=== PATIENT | male | born 1945 | race Caucasian/White ===

== ENCOUNTER 2016-08-03 13:00 | Inpatient (IN) | payer BC, OTHER ==
[~2016-08-03] VITALS: Ht 170.2 cm; Wt 97.8 kg
[~2016-08-03 13:00] MED LIST: AMIL5TAB15 PO; ATOR-24 PO; CMP/10 PO; ENOX40IN SQ; FLUD0.1T10 PO; LEVO100T7 PO; ONDA-63 PO; PANT40TA PO; XLD/500 PO; ZOLP5TAB6 PO
[2016-08-03] MEDS ORDERED: SODIUM CHLORIDE 0.9% 1000ML 2,000 ML IV STA (13:38)
[2016-08-03] MEDS ORDERED: PIPERACILLIN/TAZOBACTAM 4.5 GM/100ML D5W IV STA (13:39)
[2016-08-03] MEDS ORDERED: VANCOMYCIN INJ 1,900 MG in SODIUM CHLORIDE 0.9% 250ML 250 ML IV STA (14:06)
[2016-08-03] MEDS ORDERED: VANCOMYCIN INJ 1,900 MG in SODIUM CHLORIDE 0.9% 500ML 500 ML IV SCH (14:06)
[2016-08-03] MEDS ORDERED: SODIUM CHLORIDE 0.9% 1000ML 1,000 ML IV STA (14:06)
[2016-08-03 14:13] LABS: INR 1.4 (0.9-1.1); PROTHROMBIN TIME (PATIENT) 15.1 SECONDS (9.0-12.0)
[2016-08-03 14:24] LABS: BUN/CREATININE RATIO 12.2 (10-20); CALCIUM 7.8 mg/dl (8.5-10.1); CREATININE 3.4 mg/dl (0.60-1.40); MAGNESIUM 1.2 mg/dl (1.8-2.4); POTASSIUM 4.8 mmol/L (3.5-5.1)
--- NOTE | 2016-08-03 14:24 | DIAGNOSTIC IMAGING REPORT ---
CHEST ONE VIEW PORTABLE CLINICAL HISTORY: fever cough COMPARISON STUDY: 03/12/2016 FINDINGS: Poor visibility of the left cardiac margin. Lingular infiltrate is potentially present. Minimal infiltrative change left suprahilar region. Central catheter in superior vena cava. IMPRESSION: Interval development of infiltrative changes involving the lingula and left upper lung Electronically signed by: Keith Queen M.D. 08/03/2016 2:21 PM Dictated Date/Time: 08/03/2016 2:21 PM
[2016-08-03 14:28] LABS: ISTAT CREATININE 3.3 mg/dl (0.6-1.3); ISTAT HEMOGLOBIN 12.9 g/dl (14.0-18.0); ISTAT IONIZED CALCIUM 1.03 mmol/l (1.12-1.32)
[2016-08-03 14:49] LABS: CKMB/CK RATIO 2.2 (0-3.0)
--- NOTE | 2016-08-03 14:57 | DIAGNOSTIC IMAGING REPORT ---
ABDOMEN AND PELVIS CT WITHOUT CONTRAST CT DOSE: 1467.51 mGy.cm HISTORY: Left lower quadrant abdominal pain. TECHNIQUE: Multiaxial CT images of the abdomen and pelvis were performed without contrast. COMPARISON STUDY: Abdomen and pelvis CT 03/12/2016. FINDINGS: The lung bases are clear. There is a tip of the catheter within the distal SVC. Poststernotomy changes. No pneumoperitoneum. No pneumatosis. Stable small sclerotic focus within the right side of the sacrum favors a bone island. The gallbladder is not identified and is likely surgically absent. No hepatic or splenic masses. Normal adrenal glands, pancreas, and kidneys. No hydronephrosis. Small fat-containing hiatus hernia. Motion artifact. No retroperitoneal lymphadenopathy. The bladder is unremarkable. The prostate is surgically absent. Fluid-filled colon. Mild thickening of the of the distal descending colon with mild pericolic fat stranding. This is consistent with a nonspecific colitis. The colon is decompressed resulting in suboptimal evaluation. No evidence for bowel obstruction. Small focal area of right-sided mesenteric fat stranding is of uncertain clinical significance. IMPRESSION: 1. Mild thickening of the distal descending colon consistent with a nonspecific colitis. 2. Small focal area of mild fat stranding within the right side of the mesentery adjacent to the distal superior mesenteric vessels. This is of uncertain clinical significance. One month follow-up can be performed to ensure resolution. Electronically signed by: Michael Diaz M.D. 08/03/2016 2:55 PM Dictated Date/Time: 08/03/2016 2:48 PM
[2016-08-03 15:43] LABS: HEMATOCRIT 38.5 % (42-52); MEAN CELL VOLUME 78.9 fL (80-100); MEAN CORPUSCULAR HEMOGLOBIN 26.2 pg (25-34); MEAN CORPUSCULAR HGB CONC 33.2 g/dl (32-36); PLATELET COUNT 38 K/uL (130-400); RED BLOOD COUNT 4.88 M/uL (4.7-6.1)
[2016-08-03 15:45] LABS: COMPLETE YES; GIANT PLATELETS 3+; LYMPH ABS # 0.11 K/uL (1.2-3.4)
[2016-08-03] MEDS ORDERED: ONDANSETRON INJ 8 MG in DEXTROSE 5% 50ML 50 ML IV PRN (15:45)
[2016-08-03] MEDS ORDERED: ONDANSETRON INJ 2 MG/ML 2 ML VIAL IV PRN (15:45)
[2016-08-03] MEDS ORDERED: POLYETHYLENE (MIRALAX) 17 GM PACK PO PRN (15:45)
[2016-08-03] MEDS ORDERED: MAGNESIUM HYDROXIDE SUSP 30 ML UDC PO PRN (15:45)
[2016-08-03] MEDS ORDERED: ACETAMINOPHEN 325 MG TAB PO PRN (15:45)
[2016-08-03] MEDS ORDERED: ALUMINUM/MAGNESIUM/SIMETH (MAALOX MAX) 30 ML UDC PO PRN (15:45)
[2016-08-03] MEDS ORDERED: ZOLPIDEM TARTRATE 5 MG TAB PO PRN (15:45)
[2016-08-03 15:47] LABS: WHITE BLOOD COUNT 0.11 K/uL (4.8-10.8)
--- NOTE | 2016-08-03 16:16 | History and Physical ---
History & Physical Date & Time of Service: Aug 03, 2016 at 14:27 Chief Complaint: Cannot Stand,Nausea,Vision Problems, Chemo Side Ef Primary Care Physician: Jovani Olvera M.D. History of Present Illness Source: patient, spouse Mr. Cody is a 70 y/o male with PMHx of Metastatic Esophageal CA with Mets to Lung, Prostate CA S/P Prostatectomy, CAD S/P CABG x 3, HTN, CKD Stage II, and Cerebral Venous Thrombosis on Lovenox who presents to the ED complaining of persistent weakness that started suddenly yesterday morning. He has been experiencing persistent chills and rigors that have progressively worsened. Per patient's , symptoms did not resolve with the use of blankets and 3 heating pads. She states that when she took his temperature it was normal at approximately 99F. Later in the evening, patient noted to be confused and was seen crawling to the bathroom. Patient states that this is the last time he urinated but cannot give further details. Per , patient noted to have looser stool without evidence of melena/hematochezia . He is currently undergoing chemotherapy with last dose on Saturday. This is the second round and he is due for another dosing on Saturday. They deny known sick contacts. Patient denies any other symptoms including headache, visual changes, chest pain , shortness of breath, cough, nausea/vomiting, dysuria. Patient reports that he was largely feeling well prior to yesterday but does reports mild generalized fatigue that he contributes to chemotherapy. In the ED, temperature 36.3 moments of hypotension that have stabilized with aggressive hydration. Has received NSS 3 L. He is tachycardic and tachypneic. EKG reveals sinus tachycardia with T-wave inversion in V1 and V3 ST T-wave abnormalities in V2. These appear new compared to prior EKGs. Patient placed on neutropenic precautions as neutrophils are 0 and WBC is 0.11. Creatinine 3.4 with baseline appearing to be 1.4-1.6. Magnesium of 1.2. Lactic acid 7.4. Initial troponin 0.315. CXR showing infiltrative change in the lingula and left upper lobe. He will be admitted to telemetry for sepsis likely a pulmonary source. Past Medical/Surgical History Medical Problems: (1) Asthma, Unspecified Status: Chronic (2) Brain aneurysm Status: Chronic (3) Chronic Kidney Disease, Unspecified Status: Chronic (4) CORONARY ATHEROSCLEROSIS OF [place] CORONARY VESSEL Status: Chronic (5) Dysphagia Status: Resolved (6) Esophageal adenocarcinoma Status: Chronic (7) Gastritis Status: Resolved (8) HX OF IRRADIATION Status: Resolved (9) HX-ORAL/PHARYNX MALG NEC Status: Resolved (10) Hyperlipidemia Nec/Nos Status: Chronic (11) Hypertension Nos Status: Chronic (12) Odynophagia Status: Resolved (13) Orthostatic hypotension Status: Resolved Surgical Problems: (1) Coronary artery bypass grafts x 3 Status: Resolved (2) History of prostatectomy Status: Resolved (3) S/P cholecystectomy Status: Resolved Family History Diabetes mellitus FHx: cancer Hypertension Social History Smoking Status: Never Smoker Drug Use: none Marital Status: Occupational Status: retired Immunizations History of Influenza Vaccine: No History of Tetanus Vaccine?: Unknown Tetanus Immunization Date: May 15, 2007 History of Pneumococcal: Unknown History of Hepatitis B Vaccine: Unknown Multi-Drug Resistant Organisms History of MDRO: No Allergies Coded Allergies: Doxycycline (Verified Adverse Reaction, Intermediate, GI SYMPTOMS, ) Home Medications Scheduled Amiloride Hcl (Amiloride Hcl), 5 MG PO DAILY Atorvastatin (Lipitor), 40 MG PO DAILY Capecitabine (Xeloda), 1,000 MG PO BID Enoxaparin (Lovenox), 40 MG SQ QPM Fludrocortisone Acetate (Florinef), 0.1 MG PO DAILY Levothyroxine Sodium (Levothyroxine Sodium), 100 MCG PO DAILY Pantoprazole (Protonix), 40 MG PO DAILY Prochlorperazine Maleate (Prochlorperazine Maleate), 10 MG PO PRN UD Scheduled PRN Ondansetron (Ondansetron HCl), 8 MG PO Q8 PRN for Nausea Zolpidem Tartrate (Zolpidem Tartrate), 5 MG PO HS PRN for Insomnia Review of Systems REVIEW OF SYSTEMS: General/Constitutional: +chills, +rigors, +generalized weakness; Denies fever ENT: Denies visual changes, nasal drainage, hearing loss, sore throat, trouble swallowing Cardiovascular: Denies chest pain, palpitations, edema Respiratory: Denies cough, sputum, SOB, wheezing, orthopnea GI: +mild LLQ abdominal pain, +loose stool ; Denies nausea, vomiting, constipation, melena/hematochezia : +decreased urination; Denies dysuria, frequency, hematuria Musculoskeletal: Denies joint/muscle aches, weakness, swelling Neurologic: Denies dizziness/lightheadedness, numbness/tingling Psychiatric: Deferred Endocrine: Deferred Hematologic/Lymphatic: Denies bleeding/clotting abnormalities Skin: Denies rash, itch, new skin changes, easy bruising Allergy/Immunologic: Deferred Physical Exam Vital Signs Date Time Temp Pulse Resp B/P Pulse Ox O2 Delivery O2 Flow Rate FiO2 08/03/16 13:53 119 08/03/16 13:10 36.3 124 26 117/61 94 Room Air PHYSICAL EXAM:: General Appearance: Ill-appearing with rigors who is A&O x 3 HEENT: Head is normocephalic/atraumatic; EOMI; PERRLA; Hearing grossly intact; Mucous membranes dry; Pharynx negative for exudate/lesions Neck: Supple; Trachea midline; Neg JVD; Neg lymphadenopathy Heart: Tachycardic with regular rhythm with no M/G/R Lungs: CTA in all lung [place] bilaterally but diminished; Respirations mildly labored (tachypneic); Neg accessory muscle use Abdomen: Soft, non-tender, non-distended; Positive BS x 4 quadrants; Neg organomegaly Extremities: Capillary refill < 2 seconds; Neg cyanosis or edema Neurological: Speech clear; Gross motor/sensory function intact; Neg focal neurologic deficits Psychiatric: Appropriate mood/affect Skin: Normal Color; Warm/Dry; Neg rashes, ecchymosis, lacerations/ulcerations Diagnostics Laboratory Results Results Past 24 Hours Test 08/03/16 13:38 08/03/16 13:50 08/03/16 13:58 08/03/16 14:11 Range/Units Creatine Kinase MB Ratio 0-3.0 Prothrombin Time 15.1 9.0-12.0 SECONDS Prothromb Time International Ratio 1.4 0.9-1.1 Sodium Level 137 136-145 mmol/L Potassium Level 4.8 3.5-5.1 mmol/L Chloride Level 104 98-107 mmol/L Carbon Dioxide Level 17 21-32 mmol/L Anion Gap 16.0 3-11 mmol/L Blood Urea Nitrogen 42 7-18 mg/dl Creatinine 3.40 0.60-1.40 mg/dl Est Creatinine Clear Calc Drug Dose 22.0 ml/min Estimated GFR () 19.8 Estimated GFR (Non- 17.0 BUN/Creatinine Ratio 12.2 10-20 Random Glucose 98 70-99 mg/dl Calcium Level 7.8 8.5-10.1 mg/dl Magnesium Level 1.2 1.8-2.4 mg/dl Direct Bilirubin 0.9 0-0.2 mg/dl Alanine Aminotransferase (ALT/SGPT) 43 12-78 U/L Albumin 2.6 3.4-5.0 gm/dl Bedside Lactic Acid Venous 7.40 0.90-1.70 mmol/L Microbiology Results 08/03/16 Blood Culture, Received Pending 08/03/16 Blood Culture, Received Pending Diagnostic Radiology 1. CHEST ONE VIEW PORTABLE CLINICAL HISTORY: fever cough COMPARISON STUDY: 03/12/2016 FINDINGS: Poor visibility of the left cardiac margin. Lingular infiltrate is potentially present. Minimal infiltrative change left suprahilar region. Central catheter in superior vena cava. IMPRESSION: Interval development of infiltrative changes involving the lingula and left upper lung EKG Poor data quality, interpretation may be adversely affected Sinus tachycardia ST and t wave changes concerning for ischemia Abnormal ECG When compared with ECG of 12-MAR-2016 15:16, T wave inversion now evident in Anterior leads Confirmed by Jakob Sam ([id number]) on 08/03/2016 4:35:17 PM Impression Assessment and Plan Mr. Cody is a 70 y/o male with PMHx of Metastatic Esophageal CA with Mets to Lung, Prostate CA S/P Prostatectomy, CAD S/P CABG x 3, HTN, CKD Stage II, and Cerebral Venous Thrombosis on Lovenox who presents to the ED complaining of persistent weakness that started suddenly yesterday morning. He will be admitted to telemetry for sepsis likely a pulmonary source. Sepsis 2/2 Pneumonia with Non-specific Colitis and Neutropenic Fever: NEUTROPENIC PRECAUTIONS - Awaiting further R/O with UA, C. Diff, and BCx - Chest CT - further evaluation of lung [place] for pneumonia vs CA - NSS 3 L - continue NSS 100 mL/hr - Continue aggressive hydration if needed - Zosyn and vancomycin per pharmacy dosing Elevated Troponin: Demand Ischemia vs SALINA vs NSTEMI - Serial cardiac enzymes - Consult cardiology - appreciate recommendations SAL[place] on CKD Stage II: Baseline 1.5-1.6 - Continue hydration as above - trend BMP Hypomagnesemia: Chronic Issue: - Magnesium 1 g IV 3 - Continue to monitor and replete as necessary Metastatic Esophageal CA with Lung Mets under Chemotherapy with Pancytopenia: - Zofran 4-8 mg IV PRN - Consult Heme/Onc - Dr. Cruz -- Neupogen 300 mcg daily Hypothyroidism: - Synthroid 100 mcg daily Cerebral Venous Thrombosis: 3 Years Ago - Patient has been continued on prophylactic Lovenox while undergoing cancer treatment - Due to significant thrombocytopenia - will hold Lovenox until further evaluation DVT Prophylaxis: Thrombocytopenia; YEE/SCDs Code Status: FULL RESUSICTATION Disposition: Resides at home Level of Care Telemetry Resuscitation Status FULL RESUSCITATION VTE Prophylaxis VTE Risk Assessment Done? Y/N: Yes Risk Level: Moderate Given or contraindicated: T.ELiz Stockings, SCD's Social Service Consult Cancer Patient Under [place] Assessment and Plan Attending Addendum: I have physically seen and examined this patient, have directed their medical care, have supervised the PA's activity, and agree with the H&P as noted above, with the following changes: NONE.
[2016-08-03 17:58] VITALS: BP 138/73; PULSE 133; TEMP 36.5; O2SAT 96; Ht 170.2 cm; Wt 97.8 kg
[2016-08-03 17:59] LABS: INFLUENZA A PCR Neg for Influ A (NEG); INFLUENZA B PCR Neg for Influ B (NEG)
--- NOTE | 2016-08-03 18:10 | EMERGENCY ROOM VISIT NOTE ---
History Report prepared by Nubia: Emmanuelle Francis Under the Supervision of: Dr. Donald Tran D.O. First contact with patient: 13:20 Chief Complaint: OTHER COMPLAINT Stated Complaint: CANNOT STAND,NAUSEA,VISION PROBLEMS, CHEMO SIDE EF History of Present Illness The patient is a 70 year old male who presents to the Emergency Room with complaints of persistent weakness starting yesterday morning. He started having chills and shaking yesterday morning. He was not able to warm up with heating pads. Later on in the evening he was confused and weak. He reports some diarrhea. Pt denies headache, change in vision, fevers, chest pain, shortness of breath, nausea, vomiting, pain with urination, and melena. He is receiving chemo for esophageal cancer which has spread to his lungs and lymph nodes. He has had 2 rounds of chemo so far. His last round was 4 days ago. He is on Lovenox. notes that he was confused yesterday that this has resolved today. Source of History: patient, spouse/significant other Onset: yesterday morning Position: other (global) Quality: other (weakness) Timing: other (persistent) Associated Symptoms: + chills, + diarrhea, No SOB, No chest pain, No fevers , No headache, No melena, No nausea, No vomiting Note: Pt reports confusion. Pt denies change in vision, dysuria. Review of Systems See HPI for pertinent positives & negatives. A total of 10 systems reviewed and were otherwise negative. 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 (11) Hyperlipidemia Nec/Nos (12) Hypertension Nos (13) Odynophagia (14) Orthostatic hypotension (15) Pancytopenia (16) Sepsis (17) Syncope Surgical Problems: (1) Coronary artery bypass grafts x 3 (2) History of prostatectomy (3) S/P cholecystectomy Family History Diabetes mellitus FHx: cancer Social History Smoking Status: Never Smoker Alcohol Use: occasionally Drug Use: none Marital Status: Housing Status: lives with family Occupation Status: retired Current/Historical Medications Scheduled Amiloride Hcl (Amiloride Hcl), 5 MG PO DAILY Atorvastatin (Lipitor), 40 MG PO DAILY Capecitabine (Xeloda), 1,000 MG PO BID Enoxaparin (Lovenox), 40 MG SQ QPM Fludrocortisone Acetate (Florinef), 0.1 MG PO DAILY Levothyroxine Sodium (Levothyroxine Sodium), 100 MCG PO DAILY Pantoprazole (Protonix), 40 MG PO DAILY Prochlorperazine Maleate (Prochlorperazine Maleate), 10 MG PO PRN UD Scheduled PRN Ondansetron (Ondansetron HCl), 8 MG PO Q8 PRN for Nausea Zolpidem Tartrate (Zolpidem Tartrate), 5 MG PO HS PRN for Insomnia Allergies Coded Allergies: Doxycycline (Verified Adverse Reaction, Intermediate, GI SYMPTOMS, ) Physical Exam Vital Signs Date Time Temp Pulse Resp B/P Pulse Ox O2 Delivery O2 Flow Rate FiO2 08/03/16 15:25 113 28 92 08/03/16 15:11 132/78 08/03/16 15:00 125/72 08/03/16 14:55 112 34 100 08/03/16 14:54 113 20 142/77 98 Room Air 08/03/16 14:51 142/77 08/03/16 14:30 114/66 08/03/16 14:25 109 29 94 08/03/16 14:20 110 22 97 Room Air 08/03/16 14:19 99/63 08/03/16 14:15 113 27 96 Room Air 08/03/16 14:10 116 38 97 Room Air 08/03/16 14:05 116 38 96 Room Air 08/03/16 14:00 116 37 99/66 08/03/16 13:55 118 36 90 Room Air 08/03/16 13:53 119 08/03/16 13:50 119 29 92 Room Air 08/03/16 13:45 120 26 94 Room Air 08/03/16 13:40 117 32 92 Room Air 08/03/16 13:30 85/54 08/03/16 13:10 36.3 124 26 117/61 94 Room Air Physical Exam GENERAL: sitting up in bed, ill appearing, in significant distress, lethargic EYE EXAM: normal conjunctiva, PERRL and EOM's intact OROPHARYNX: no exudate, no erythema, lips, buccal mucosa, and tongue normal and mucous membranes are dry NECK: supple, no nuchal rigidity, no adenopathy, non-tender CHEST: port on anterior chest wall LUNGS: Clear to auscultation. Normal chest wall mechanics HEART: tachycardic rate. no murmurs, S1 normal and S2 normal ABDOMEN: abdomen soft, mild tenderness to palpation to the LLQ, normo-active bowel sounds, no masses, no rebound or guarding. BACK: Back is symmetrical on inspection and there is no deformity, no midline tenderness, no CVA tenderness. SKIN: no rashes and no bruising UPPER EXTREMITIES: upper extremities are grossly normal. LOWER EXTREMITIES: No pitting edema. NEURO EXAM: Normal sensorium, oriented to person place, time and date. Cranial nerves II-XII intact, normal speech, no weakness of arms, no weakness of legs. No drift. Finger to nose intact. Gross sensation intact. Medical Decision & Procedures ER Provider Diagnostic Interpretation: Xray results as stated below per radiologists and my interpretation. Radiology results as stated below per my review and the radiologist's interpretation: CHEST ONE VIEW PORTABLE CLINICAL HISTORY: fever cough COMPARISON STUDY: 03/12/2016 FINDINGS: Poor visibility of the left cardiac margin. Lingular infiltrate is potentially present. Minimal infiltrative change left suprahilar region. Central catheter in superior vena cava. IMPRESSION: Interval development of infiltrative changes involving the lingula and left upper lung Electronically signed by: Keith Queen M.D. 08/03/2016 2:21 PM Dictated Date/Time: 08/03/2016 2:21 PM ABDOMEN AND PELVIS CT WITHOUT CONTRAST CT DOSE: 1467.51 mGy.cm HISTORY: Left lower quadrant abdominal pain. TECHNIQUE: Multiaxial CT images of the abdomen and pelvis were performed without contrast. COMPARISON STUDY: Abdomen and pelvis CT 03/12/2016. FINDINGS: The lung bases are clear. There is a tip of the catheter within the distal SVC. Poststernotomy changes. No pneumoperitoneum. No pneumatosis. Stable small sclerotic focus within the right side of the sacrum favors a bone island. The gallbladder is not identified and is likely surgically absent. No hepatic or splenic masses. Normal adrenal glands, pancreas, and kidneys. No hydronephrosis. Small fat-containing hiatus hernia. Motion artifact. No retroperitoneal lymphadenopathy. The bladder is unremarkable. The prostate is surgically absent. Fluid-filled colon. Mild thickening of the of the distal descending colon with mild pericolic fat stranding. This is consistent with a nonspecific colitis. The colon is decompressed resulting in suboptimal evaluation. No evidence for bowel obstruction. Small focal area of right-sided mesenteric fat stranding is of uncertain clinical significance. IMPRESSION: 1. Mild thickening of the distal descending colon consistent with a nonspecific colitis. 2. Small focal area of mild fat stranding within the right side of the mesentery adjacent to the distal superior mesenteric vessels. This is of uncertain clinical significance. One month follow-up can be performed to ensure resolution. Electronically signed by: Michael Diaz M.D. 08/03/2016 2:55 PM Dictated Date/Time: 08/03/2016 2:48 PM Laboratory Results 08/03/16 13:50 Red Blood Count 4.88, Mean Corpuscular Volume 78.9, Mean Corpuscular Hemoglobin 26.2, Mean Corpuscular Hemoglobin Concent 33.2 08/03/16 13:50 Test 08/03/16 13:50 08/03/16 13:58 08/03/16 14:11 White Blood Count 0.11 K/uL (4.8-10.8) Red Blood Count 4.88 M/uL (4.7-6.1) Hemoglobin 12.8 g/dL (14.0-18.0) Hematocrit 38.5 % (42-52) Mean Corpuscular Volume 78.9 fL (80-100) Mean Corpuscular Hemoglobin 26.2 pg (25-34) Mean Corpuscular Hemoglobin Concent 33.2 g/dl (32-36) Platelet Count 38 K/uL (130-400) RDW Standard Deviation 43.6 fL (36.4-46.3) RDW Coefficient of Variation 15.1 % (11.5-14.5) Neutrophils % (Manual) 0.0 % Lymphocytes % (Manual) 98.0 % Eosinophils % (Manual) 2.0 % Neutrophils # (Manual) 0.00 K/uL (1.4-6.5) Total Absolute Neutrophils 0.00 K/uL (1.4-6.5) Lymphocytes # (Manual) 0.11 K/uL (1.2-3.4) Total Absolute Lymphocytes 0.11 K/uL (1.2-3.4) Eosinophils # (Manual) 0.00 K/uL (0-0.5) Giant Platelets 3+ Peripheral Blood Smear Path Consult Prothrombin Time 15.1 SECONDS (9.0-12.0) Prothromb Time International Ratio 1.4 (0.9-1.1) Est Creatinine Clear Calc Drug Dose 22.0 ml/min Estimated GFR () 19.8 Estimated GFR (Non- 17.0 BUN/Creatinine Ratio 12.2 (10-20) Calcium Level 7.8 mg/dl (8.5-10.1) Magnesium Level 1.2 mg/dl (1.8-2.4) Total Bilirubin 2.4 mg/dl (0.2-1) Direct Bilirubin 0.9 mg/dl (0-0.2) Aspartate Amino Transf (AST/SGOT) 40 U/L (15-37) Alanine Aminotransferase (ALT/SGPT) 43 U/L (12-78) Alkaline Phosphatase 97 U/L (45-117) Total Creatine Kinase 59 U/L (39-308) Creatine Kinase MB 1.3 ng/ml (0.5-3.6) Creatine Kinase MB Ratio 2.2 (0-3.0) Troponin I 0.315 ng/ml (0-0.045) Total Protein 5.5 gm/dl (6.4-8.2) Albumin 2.6 gm/dl (3.4-5.0) Bedside Lactic Acid Venous 7.40 mmol/L (0.90-1.70) Bedside Hemoglobin 12.9 g/dl (14.0-18.0) Bedside Hematocrit 38 % (42-52) Bedside Sodium 135 mEq/L (135-144) Bedside Potassium 4.9 mEq/L (3.3-5.0) Bedside Chloride 102 mEq/L (101-112) Bedside Total CO2 16 mEq/l (24-31) Anion Gap 23.0 mmol/L (16-25) Bedside Blood Urea Nitrogen 38 mg/dl (7-18) Bedside Creatinine 3.3 mg/dl (0.6-1.3) Bedside Glucose (other) 94 mg/dl (70-99) Bedside Ionized Calcium (Nati) 1.03 mmol/l (1.12-1.32) Laboratory results per my review. Medications Administered Medications (Trade) Dose Ordered Sig/Mckinley Route Start Time Stop Time Status Last Admin Dose Admin Sodium Chloride (Nss 1000ml) 2,000 ml @ 999 mls/hr Q2H1M STAT IV 08/03/16 13:38 08/03/16 15:38 DC 08/03/16 14:28 999 MLS/HR Piperacillin Sod/ Tazobactam Sod 4.5 gm 4.5 gm NOW STAT IV 08/03/16 13:39 08/03/16 13:40 DC 08/03/16 14:28 4.5 GM Sodium Chloride 1,000 ml @ 999 mls/hr Q1H1M STAT IV 08/03/16 14:06 08/03/16 15:06 DC 08/03/16 14:06 999 MLS/HR Vancomycin HCl/ Sodium Chloride (Vancomycin Inj/ Nss 500ml) 538 ml @ 200 mls/hr TODAY@1406 IV 08/03/16 14:06 08/03/16 18:00 DC 08/03/16 14:31 200 MLS/HR ECG Indication: weakness Rate (beats per minute): 117 Rhythm: sinus tachycardia Findings: ST depression (Anterior), other (normal axis) ED Course ED COURSE: Vital signs were reviewed and showed hypothermia, tachycardia, and hypotension. The patients medical record was reviewed The above diagnostic studies were performed and reviewed. ED treatments and interventions as stated above. 1323: The patient was evaluated in room A2. A complete history and physical examination was performed. 1338: NSS 2000 ml @ 999 mls/hr IV. 1339: Zosyn Iv 4.5 gm IV. 1340: I reevaluated the patient. His blood pressure is in the 80s and his lactate is 7. Another line will be obtained. 1406: Vancomycin HCl 1900 mg/Sodium Chloride 538 ml @ 200 mls/hr IV, NSS 1000 ml @ 999 mls/hr IV. 1413: I reevaluated the patient. His blood pressure is 99 now. 1444: I reevaluated the patient. His blood pressure is now in the 110s. 1521: Upon reevaluation, the patient is resting comfortably. I discussed my findings with the patient and his and they understand and agree with the treatment plan. Based on the patients age, coexisting illnesses, exam and lab findings the decision to treat as an inpatient was made. The patient remained stable while under my care. The patient will be evaluated for further management. 1528: I discussed the patient's case with NATALI Cordova - hospitalist. He will evaluate the patient for further management. Medical Decision Differential diagnosis includes etiologies such as sepsis, UTI, pneumonia, metabolic, electrolyte abnormalities, cardiac sources, intracerebral event, toxicologic, neurologic, as well as others were entertained. Patient is a 70-year-old male who presents the ER for confusion and diffuse weakness. He is currently receiving chemotherapy for metastatic esophageal cancer. Upon presentation he is found to be hypotensive with systolic blood pressures in the 70s to 80s. On my exam he is completely neurologically intact. He has no complaints with exception of mild left lower quadrant abdominal pain. Labs show a neutropenia with an absolute neutrophil count of 0. Creatinine is significantly elevated off of his baseline at 3.4. Lactate is markedly elevated at 7.4. With his elevated creatinine a noncontrast study of his abdomen was performed. This shows no acute pathology that would explain his symptoms. Chest x-ray does support a pneumonia. Troponin was elevated at 0.3 which I favors likely demand in nature. Bilirubin was elevated as well. Upon arrival 2 IVs were immediately established and a sepsis alert was called. His port was accessed as well. Blood pressures improved from the 80s to low 100s gradually. He was given 3 L normal saline along with Zosyn and vancomycin. He was admitted to internal medicine with severe sepsis and a lactate acidosis of 7 along with neutropenia. Consults Time Called: 1520 Consulting Physician: CYNDY Cordova - hospitalist Returned Call: 1520 I reviewed the patient's case with him. He will evaluate the patient for further management. Impression Primary Impression: Sepsis Additional Impressions: Neutropenia Lactic acidosis Acute kidney injury Pneumonia Critical Care I have personally spent 35 minutes of critical care time in the direct management of this patient. This includes bedside care, interpretation of diagnostic studies, and testing, discussion with consultants, patient, and family members, and other required patient management activities. This 35 minutes is in excess of all separately billable procedures. Scribe Attestation The scribe's documentation has been prepared under my direction and personally reviewed by me in its entirety. I confirm that the note above accurately reflects all work, treatment, procedures, and medical decision making performed by me. Departure Information Dispostion Being Evaluated By Hospitalist Referrals Jovani Olvera M.D. (PCP) Patient Instructions My [facility] Problem Qualifiers Primary Impression: Sepsis Sepsis type: sepsis due to unspecified organism Qualified Codes: A41.9 - Sepsis, unspecified organism Additional Impressions: Neutropenia Neutropenia type: unspecified Qualified Codes: D70.9 - Neutropenia, unspecified Pneumonia Pneumonia type: due to unspecified organism Laterality: unspecified laterality Lung location: unspecified part of lung Qualified Codes: J18.9 - Pneumonia, unspecified organism
--- NOTE | 2016-08-03 18:42 | Oncology Consultation ---
Oncology/Heme Consultation Date of Consultation: Aug 03, 2016. Attending Physician: Rajeev Miles M.D. Reason for Consultation: Recurrent esophagogastric carcinoma Cytopenia secondary to therapy Probable sepsis History of Present Illness Mr. Cody is a 70-year-old gentleman with a history of esophagogastric carcinoma. This was discovered in 2014. At presentation he had a T2 lesion with one large lymph node with a biopsy positive for adenocarcinoma. He went on to receive systemic chemotherapy and radiation therapy. Disease would recur with biopsy-proven metastasis to the lung. He was then treated with me ask. At that time his therapy was being given at [facility]. In March 2016 PET /CT scans would show a response and he went on to receive 3 cycles of oxaliplatin and Xeloda. However PET/CT scans on July 11 of this year showed FDG avid mediastinal paraesophageal and right hilar adenopathy insistent with progression of disease. It was recommended that he restart chemotherapy either resumption of the oral ask or consider Taxol with ramucirumab. He has then received Taxol day one and day 8 and day 15 with day 8 being given just 4 days ago. He now presents with at least 24 hours or shaking chills and confusion. He is currently oriented but is uncomfortable and has ongoing rigors. He is markedly cytopenic namely neutropenic and thrombocytopenic. There has not been any bleeding.. Chest x-ray reflects infiltrate consistent with pneumonia. 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 Past Medical/Surgical History Medical Problems: (1) Acute kidney injury Status: Acute (2) History of malignant neoplasm of esophagus Status: Acute (3) Hypomagnesemia Status: Acute (4) Hypomagnesemia Status: Acute (5) Lactic acidosis Status: Acute (6) Nausea & vomiting Status: Acute (7) Neutropenia Status: Acute (8) Pneumonia Status: Acute (9) Thrombocytopenia Status: Acute (10) Vomiting Status: Acute Family History Diabetes mellitus FHx: cancer Social History Smoking Status: Never Smoker Drug Use: none Marital Status: Housing Status: lives with family Occupation Status: retired Allergies Coded Allergies: Doxycycline (Verified Adverse Reaction, Intermediate, GI SYMPTOMS, ) Home Medications Scheduled Amiloride Hcl (Amiloride Hcl), 5 MG PO DAILY Atorvastatin (Lipitor), 40 MG PO DAILY Capecitabine (Xeloda), 1,000 MG PO BID Enoxaparin (Lovenox), 40 MG SQ QPM Fludrocortisone Acetate (Florinef), 0.1 MG PO DAILY Levothyroxine Sodium (Levothyroxine Sodium), 100 MCG PO DAILY Pantoprazole (Protonix), 40 MG PO DAILY Prochlorperazine Maleate (Prochlorperazine Maleate), 10 MG PO PRN UD Scheduled PRN Ondansetron (Ondansetron HCl), 8 MG PO Q8 PRN for Nausea Zolpidem Tartrate (Zolpidem Tartrate), 5 MG PO HS PRN for Insomnia Current Inpatient Medications Current Inpatient Medications Medications (Trade) Dose Ordered Sig/Mckinley Route Start Time Stop Time Status Last Admin Dose Admin Magnesium Sulfate 3 gm/Prmx 100 ml @ 100 mls/hr NOW STAT IV 08/03/16 15:29 08/03/16 16:28 UNV Sodium Chloride (Nss 1000ml) 1,000 ml @ 100 mls/hr Q10H IV 08/03/16 15:31 09/02/16 15:30 UNV Acetaminophen (Tylenol Tab) 650 mg Q4H PRN PO 08/03/16 15:45 09/02/16 15:44 Al Hydrox/Mg Hydrox/Simethicone (Maalox Max Susp) 15 ml Q4H PRN PO 08/03/16 15:45 09/02/16 15:44 Magnesium Hydroxide (Milk Of Magnesia Susp) 30 ml Q12H PRN PO 08/03/16 15:45 09/02/16 15:44 Ondansetron HCl (Zofran Inj) 4 mg Q6H PRN IV 08/03/16 15:45 09/02/16 15:44 Polyethylene 17 gm 17 gm DAILY PRN PO 08/03/16 15:45 09/02/16 15:44 Piperacillin Sod/ Tazobactam Sod 3.375 gm/Dextrose 115 ml @ 28.75 mls/ hr Q8 IV 08/03/16 22:00 08/10/16 21:59 UNV Vancomycin HCl/ Sodium Chloride (Vancomycin Inj/ Nss 250ml) 270 ml @ 125 mls/hr Q12 IV 08/03/16 21:00 08/10/16 20:59 UNV Enoxaparin Sodium (Lovenox Inj) 30 mg QPM SQ 08/03/16 21:00 09/02/16 20:59 Fludrocortisone Acetate (Florinef Tab) 0.1 mg DAILY PO 08/04/16 09:00 09/03/16 08:59 Levothyroxine Sodium (Synthroid Tab) 100 mcg DAILYBB PO 08/04/16 06:00 09/03/16 06:59 Zolpidem Tartrate 5 mg 5 mg HS PRN PO 08/03/16 15:45 09/02/16 15:44 Pantoprazole Sodium 40 mg/ Syringe 10 ml @ 5 mls/min NOW ONCE IV 08/03/16 15:45 08/03/16 15:46 UNV Ondansetron HCl/ Dextrose (Zofran Inj/D5 50ml) 54 ml @ 200 mls/hr Q6H PRN IV 08/03/16 15:45 09/02/16 15:44 Review of Systems Constitutional: No definite fever but his reports rigors and we see them now Eyes: Negative for event change of vision ENT: Negative for epistaxis, nasal discharge, sore throat, or deafness Cardiovascular: Negative for chest pain, palpitations, dizziness, diaphoresis Respiratory: He states he has been short of breath Gastrointestinal: Negative for diarrhea, hematemesis, melena, nausea, vomiting , or dyspepsia Integumentary (skin): Negative for rash or jaundice discoloration Genitourinary: Negative for urinary frequency, hematuria, or dysuria Neurological: Negative for weakness, seizure activity, headache, or dizziness Lymphatic/Hematologic: Negative for petechiae, bleeding or new adenopathy Musculoskeletal: Negative for new joint or back pain Allergic/Immunologic: Negative for unusual rash or pruritis. Physical Exam Date Time Temp Pulse Resp B/P Pulse Ox O2 Delivery O2 Flow Rate FiO2 08/03/16 17:58 36.5 133 22 138/73 96 Room Air 08/03/16 16:25 117 94 08/03/16 16:00 128/68 08/03/16 15:55 114 29 95 08/03/16 15:25 113 28 92 08/03/16 15:11 132/78 08/03/16 15:00 125/72 08/03/16 14:55 112 34 100 08/03/16 14:54 113 20 142/77 98 Room Air 08/03/16 14:51 142/77 08/03/16 14:30 114/66 08/03/16 14:25 109 29 94 08/03/16 14:20 110 22 97 Room Air 08/03/16 14:19 99/63 08/03/16 14:15 113 27 96 Room Air 08/03/16 14:10 116 38 97 Room Air 08/03/16 14:05 116 38 96 Room Air 08/03/16 14:00 116 37 99/66 08/03/16 13:55 118 36 90 Room Air 08/03/16 13:53 119 08/03/16 13:50 119 29 92 Room Air 08/03/16 13:45 120 26 94 Room Air 08/03/16 13:40 117 32 92 Room Air 08/03/16 13:30 85/54 08/03/16 13:10 36.3 124 26 117/61 94 Room Air Constitutional: vitals are stable. Obese gentleman oriented 3 Eyes: Eyes are ARTURO EOMI without conjuctival erythema or icterus. ENT: External examination was negative for masses. Neck: Negative for masses or palpable thyromegaly Respiratory: Lung sounds reflect bronchospasm bilaterally Cardiovascular: Heart was RRR without significant murmur, gallops aoe rubs Gastrointestinal: No palpable hepatic or splenomegaly. The abdomen was soft with normal bowel sounds. Lymphatic system: there was no palpable peripheral lymphadenopathy Musculoskeletal System: The musculoskeletal system seemed concordant with age. Skin: The skin was negative for jaundice. There was some evidence of mottling peripherally Neurologic exam: The exam was negative for any focal findings. Deep tendon reflexes were equal and symmetrical. Psychiatric exam: Was essentially negative with normal mood and effect. Extremities: Negative for edema Laboratory Results Last 24 Hours Test 08/03/16 13:50 08/03/16 13:58 08/03/16 14:11 08/03/16 16:13 White Blood Count 0.11 K/uL Red Blood Count 4.88 M/uL Hemoglobin 12.8 g/dL Hematocrit 38.5 % Mean Corpuscular Volume 78.9 fL Mean Corpuscular Hemoglobin 26.2 pg Mean Corpuscular Hemoglobin Concent 33.2 g/dl Platelet Count 38 K/uL RDW Standard Deviation 43.6 fL RDW Coefficient of Variation 15.1 % Neutrophils % (Manual) 0.0 % Lymphocytes % (Manual) 98.0 % Eosinophils % (Manual) 2.0 % Neutrophils # (Manual) 0.00 K/uL Total Absolute Neutrophils 0.00 K/uL Lymphocytes # (Manual) 0.11 K/uL Total Absolute Lymphocytes 0.11 K/uL Eosinophils # (Manual) 0.00 K/uL Giant Platelets 3+ Peripheral Blood Smear Path Consult Prothrombin Time 15.1 SECONDS Prothromb Time International Ratio 1.4 Sodium Level 137 mmol/L Potassium Level 4.8 mmol/L Chloride Level 104 mmol/L Carbon Dioxide Level 17 mmol/L Anion Gap 16.0 mmol/L 23.0 mmol/L Blood Urea Nitrogen 42 mg/dl Creatinine 3.40 mg/dl Est Creatinine Clear Calc Drug Dose 22.0 ml/min Estimated GFR () 19.8 Estimated GFR (Non- 17.0 BUN/Creatinine Ratio 12.2 Random Glucose 98 mg/dl Calcium Level 7.8 mg/dl Magnesium Level 1.2 mg/dl Total Bilirubin 2.4 mg/dl Direct Bilirubin 0.9 mg/dl Aspartate Amino Transf (AST/SGOT) 40 U/L Alanine Aminotransferase (ALT/SGPT) 43 U/L Alkaline Phosphatase 97 U/L Total Creatine Kinase 59 U/L Creatine Kinase MB 1.3 ng/ml Creatine Kinase MB Ratio 2.2 Troponin I 0.315 ng/ml Total Protein 5.5 gm/dl Albumin 2.6 gm/dl Bedside Lactic Acid Venous 7.40 mmol/L Bedside Hemoglobin 12.9 g/dl Bedside Hematocrit 38 % Bedside Sodium 135 mEq/L Bedside Potassium 4.9 mEq/L Bedside Chloride 102 mEq/L Bedside Total CO2 16 mEq/l Bedside Blood Urea Nitrogen 38 mg/dl Bedside Creatinine 3.3 mg/dl Bedside Glucose (other) 94 mg/dl Bedside Ionized Calcium (Nati) 1.03 mmol/l Lactic Acid Level 7.6 mmol/L Test 08/03/16 16:20 Influenza Type A (RT-PCR) Neg for Influ A Influenza Type B (RT-PCR) Neg for Influ B Assessment & Plan Progressive recurrent esophagogastric adenocarcinoma now status post salvage attempt at treatment with Taxol and ramucrumab. His last dose of Taxol was on July 30. Marked cytopenia secondary to chemotherapy. G-CSF will need to start. Antibiotics are ongoing following cultures. Supportive care has begun. Magnesium is being replaced. He has always been prone to a low magnesium level. We will follow along with you. No need for transfusions.
[2016-08-03] MEDS ORDERED: NURSING VERBAL MED ORDER ONE (19:00)
[2016-08-03] MEDS ORDERED: PANTOprazole INJ 40 MG in SYRINGE 0 ML IV ONE (19:00)
[2016-08-03] MEDS: MAGNESIUM SULFATE 1GM / D5W 1 GM in PREMIXED IN D5W 100 ML IV SCH ×3 (19:11→20:39)
[2016-08-03] MEDS: SODIUM CHLORIDE 0.9% 1000ML 1,000 ML IV SCH (19:11)
[2016-08-03] MEDS ORDERED: VANCOMYCIN CONSULT ACTIVE PRN (19:15)
[2016-08-03] MEDS ORDERED: PIPERACILL/TAZOBAC CONSULT ACTIVE PRN (19:15)
[2016-08-03 19:30] VITALS: BP 117/75; PULSE 142; TEMP 36.8; O2SAT 96
--- NOTE | 2016-08-03 19:34 | Pharmacy Progress Note ---
Pharmacy Antibiotic Consult Date of Service: Aug 03, 2016. Pharmacy Dosing Scope Pharmacy is consulted to initiate Vancomycin and Zosyn IV dosing therapy, order appropriate labs and adjust drug dose/frequency. Subjective The patient is a 70 year old male admitted on Aug 03, 2016 at 15:47. Objective Height (Feet): 5 Height (Inches): 7.00 Weight (Kilograms): 95.600 Lab Results (24hrs): Laboratory Tests Test 08/03/16 13:50 BUN/Creatinine Ratio 12.2 Blood Urea Nitrogen 42 mg/dl Creatinine 3.40 mg/dl White Blood Count 0.11 K/uL Red Blood Count 4.88 M/uL Hemoglobin 12.8 g/dL Hematocrit 38.5 % Mean Corpuscular Volume 78.9 fL Mean Corpuscular Hemoglobin 26.2 pg Mean Corpuscular Hemoglobin Concent 33.2 g/dl Platelet Count 38 K/uL Micro Results: Item Value Date Time Blood Culture Received 08/03/16 1350 Blood Pending Blood Culture Received 08/03/16 1400 Blood Pending C.difficile Toxin B Gene (PCR) Received 08/03/16 1835 Stool Pending Assessment & Plan Assessment 70 yr old cytopenic male with h/o CKD stage II, esophageal cancer with lung mets and prostate cancer admitted with sepsis, suspected lung source. Patient is currently receiving chemotherapy - last dose of Taxol was 07/30. Patient has been started on Neupogen for neutropenia. Plan Vancomycin and Zosyn IV for empiric treatment of sepsis, lung source Vancomycin * Loading dose: 1900 mg (20 mg/kg) - administered in ER * Acute on chronic kidney disease. Scr elevated to 3.4 mg/dL. Baseline is around 1.4 mg/dL. * Will order a random level for 08/04 to guide further dosing. * Goal trough level estimate for sepsis: between 15 - 20 mcg/mL. * Ordered MRSA nasal swab to guide possible de-escalation of antimicrobial therapy (depending on identified source and clinical status) Zosyn * 4.5 g IV administered in ER * Start 3.375g IV every 8 hours (extended infusion) for CrCl > 20 ml/min Pharmacy will continue to follow and will adjust dose/frequency as necessary. Thank you
[2016-08-03] MEDS ORDERED: LORAZEPAM INJ 0.5 MG in SYRINGE 0.75 ML IV PRN (19:45)
[2016-08-03] MEDS: LORAZEPAM 2 MG/ML 1 ML VIAL IV PRN (19:56)
[2016-08-03] MEDS: ACETAMINOPHEN IV 650 MG in EMPTY BAG 0 ML IV PRN (19:57)
[2016-08-03] MEDS ORDERED: FILGRASTIM 300 MCG/ML 1 ML VIAL SQ ONE (20:30)
[2016-08-03] MEDS: PIPERACILL/TAZOBAC IV 3.375 GM in DEXTROSE 5% 100ML 100 ML IV SCH (20:40)
[2016-08-03 20:53] LABS: BUN/CREATININE RATIO 13.9 (10-20); MAGNESIUM 1.4 mg/dl (1.8-2.4); POTASSIUM 4.7 mmol/L (3.5-5.1)
[2016-08-03 20:59] LABS: CKMB/CK RATIO 2.6 (0-3.0)
[2016-08-03] MEDS ORDERED: VANCOMYCIN INJ 1,000 MG in SODIUM CHLORIDE 0.9% 250ML 250 ML IV SCH (21:00)
[2016-08-03] MEDS ORDERED: ENOXAPARIN 30 MG/0.3 ML SYR SQ SCH (21:00)
--- NOTE | 2016-08-03 21:03 | Progress Note ---
Progress Note Post Crystalloid Evaluation Date: Aug 03, 2016 Time: 08:00 Subjective Patient seen and evaluated. Patient initially presented to floor with rigors and eventually became restless and anxious. Received dose of Ativan and currently laying in bed without rigors and with clothes/blankets off. Patient is drowsy secondary to Ativan but answering questions. Patient continues to be normotensive but tachycardic. Repeat laboratories being completed at this time. Physical Exam Vital Signs: Vital Signs Date Time Temp Pulse Resp B/P Pulse Ox O2 Delivery O2 Flow Rate FiO2 08/03/16 19:30 36.8 142 26 117/75 96 Room Air Lungs: lungs clear, normal breath sounds, no accessory muscle use, + respiratory distress (mild distress (tachypnea)) Heart: no gallop, no murmur, + tachycardia Peripheral Pulse: Normal Capillary Refill: Normal (less than 2 seconds) Skin: Turgor (normal) Assessment & Plan Presence of: Severe Sepsis Plan as dictated in H&P. Addition of Levaquin with renal dosing will be added at this time. Will adjust plan according to further evaluations.
[2016-08-03 21:39] LABS: HEMATOCRIT 32.2 % (42-52); MEAN CELL VOLUME 78.7 fL (80-100); MEAN CORPUSCULAR HEMOGLOBIN 26.2 pg (25-34); MEAN CORPUSCULAR HGB CONC 33.2 g/dl (32-36); PLATELET COUNT 23 K/uL (130-400); RED BLOOD COUNT 4.09 M/uL (4.7-6.1); WHITE BLOOD COUNT 0.04 K/uL (4.8-10.8)
[2016-08-03] MEDS ORDERED: LEVOFLOXACIN CONSULT ACTIVE PRN (21:45)
[2016-08-03 21:48] LABS: COMPLETE YES; GIANT PLATELETS 2+; LYMPH ABS # 0.04 K/uL (1.2-3.4)
[2016-08-03] MEDS ORDERED: LEVOFLOXACIN / D5W 750 MG in PREMIXED IN D5W 150 ML IV SCH (22:00)
[2016-08-03 22:13] VITALS: BP 110/60; PULSE 116; TEMP 36.5; O2SAT 97
--- NOTE | 2016-08-03 22:18 | DIAGNOSTIC IMAGING REPORT ---
CT SCAN OF THE CHEST WITHOUT IV CONTRAST CLINICAL HISTORY: Lung cancer. COMPARISON STUDY: Chest CT scans dated 12/20/2012 and 06/30/2007. PET/CT dated 07/11/2016. TECHNIQUE: CT scan of the thorax was performed from the thoracic inlet to the upper abdomen. Images are reviewed in the axial, sagittal, and coronal planes. IV contrast was not administered for this examination as per the referring clinician. Note that the examination was performed in suboptimal fashion without IV contrast for the reported clinical history. The examination is significantly degraded by respiratory motion artifact. CT DOSE: 455.54 mGy.cm FINDINGS: Thyroid: Atrophic. Thoracic aorta: There is atherosclerotic calcification of the thoracic aorta, which is normal in caliber and demonstrates standard 3-vessel arch anatomy. There is a right internal jugular central venous infusion port. Heart: The patient is status post midline sternotomy. The heart is enlarged and without pericardial effusion. The coronary arteries are densely calcified. The pulmonary arteries are dilated suggesting pulmonary artery hypertension. There is diffusely diminished attenuation of the cardiac blood pool as compared to the myocardium suggesting anemia. Lungs and pleural spaces: Evaluation of the lung parenchyma is significantly degraded by artery motion artifact. Emphysema is observed. There is elevation of the right hemidiaphragm. Biapical atelectasis versus scarring is observed. There is no airspace consolidation typical for pneumonia. No pleural effusion is seen. No pulmonary lesion is clearly identified. The trachea and central airways are clear. Mediastinum: There is an enlarged right paratracheal lymph node seen on image #9. This was also seen on the 07/11/2016 PET/CT scan where it was noted to be markedly FDG avid. Erlinda: Not well assessed without IV contrast. Axillae: There is no axillary lymphadenopathy. Upper abdomen: The gallbladder is surgically absent. A small hiatal hernia is identified. No adrenal lesion is seen there is glandular atrophy of the partially imaged pancreas. Skeletal structures: The skeletal structures are osteopenic. Degenerative change is noted throughout the thoracic spine. No lytic or blastic bony lesions are seen. A large bone island is noted in the inferior right scapula. This is unchanged from 2013. IMPRESSION: 1. Motion degraded examination. 2. Cardiomegaly and emphysema. 3. There is no airspace consolidation or pleural effusion. 4. A pathologically enlarged right paratracheal lymph node is again noted. This was better characterized by PET on 07/11/2016. No additional pathologically enlarged mediastinal lymph nodes are identified. Electronically signed by: Bret Steiner M.D. 08/03/2016 10:16 PM Dictated Date/Time: 08/03/2016 10:04 PM
[2016-08-03 22:28] LABS: CALCIUM 6.6 mg/dl (8.5-10.1)
[2016-08-04] VITALS (41 sets, daily range): BP systolic 72–136; BP diastolic 37–75; PULSE 90–112; TEMP 36.4–36.8; O2SAT 73–97
[2016-08-04 02:40] LABS: CREATININE 3.1 mg/dl (0.60-1.40)
[2016-08-04 02:51] LABS: CKMB/CK RATIO 2.4 (0-3.0)
[2016-08-04] MEDS: SODIUM CHLORIDE 0.9% 1000ML 1,000 ML IV SCH ×2 (04:03→10:52)
[2016-08-04] MEDS: PIPERACILL/TAZOBAC IV 3.375 GM in DEXTROSE 5% 100ML 100 ML IV SCH ×2 (04:03→13:49)
[2016-08-04] MEDS: LEVOTHYROXINE 100 MCG TAB PO SCH (04:04)
[2016-08-04] MEDS: LORAZEPAM 2 MG/ML 1 ML VIAL IV PRN (05:58)
[2016-08-04 08:57] LABS: PLATELET COUNT 16 K/uL (130-400)
[2016-08-04] MEDS: FLUDROCORTISONE ACETATE 0.1 MG TAB PO SCH (09:00)
[2016-08-04] MEDS ORDERED: AMILORIDE HCL 5 MG PO SCH (09:00)
[2016-08-04] MEDS ORDERED: FILGRASTIM 300 MCG/ML 1 ML VIAL SQ SCH ×2 (09:00→20:00)
[2016-08-04 09:02] LABS: URINE APPEARANCE CLOUDY (CLEAR); URINE COLOR DK YELLOW; URINE NITRITE NEG (NEG); URINE SPECIFIC GRAVITY 1.022 (1.000-1.030); UROBILINOGEN NEG (NEG); ZZUR CULT IF INDIC CLEAN CATCH YES
[2016-08-04 09:03] LABS: MANUAL MICROSCOPIC REQUIRED? NO; REVIEW REQ? YES
[2016-08-04 09:04] LABS: URINE BILIRUBIN NEG (NEG)
[2016-08-04 09:05] LABS: BUN/CREATININE RATIO 16.1 (10-20); CALCIUM 6.4 mg/dl (8.5-10.1); CREATININE 2.8 mg/dl (0.60-1.40); MAGNESIUM 2.2 mg/dl (1.8-2.4)
[2016-08-04] MEDS: ACETAMINOPHEN IV 650 MG in EMPTY BAG 0 ML IV PRN (09:15)
[2016-08-04 09:18] LABS: HEMATOCRIT 32.2 % (42-52); MEAN CELL VOLUME 81.3 fL (80-100); MEAN CORPUSCULAR HEMOGLOBIN 26.5 pg (25-34); MEAN CORPUSCULAR HGB CONC 32.6 g/dl (32-36); RED BLOOD COUNT 3.96 M/uL (4.7-6.1); WHITE BLOOD COUNT 0.11 K/uL (4.8-10.8)
--- NOTE | 2016-08-04 10:05 | Hematology/Oncology Prog Note ---
Hematology/Onc Progress Note Date of Service Aug 04, 2016. Diagnoses Gram-negative sepsis Metastatic esophagogastric carcinoma Cytopenia secondary to chemotherapy Medications Medications Administered Medications (Trade) Dose Ordered Sig/Mckinley Route Start Time Stop Time Status Last Admin Dose Admin Sodium Chloride (Nss 1000ml) 2,000 ml @ 999 mls/hr Q2H1M STAT IV 08/03/16 13:38 08/03/16 15:38 DC 08/03/16 14:28 999 MLS/HR Piperacillin Sod/ Tazobactam Sod 4.5 gm 4.5 gm NOW STAT IV 08/03/16 13:39 08/03/16 13:40 DC 08/03/16 14:28 4.5 GM Sodium Chloride 1,000 ml @ 999 mls/hr Q1H1M STAT IV 08/03/16 14:06 08/03/16 15:06 DC 08/03/16 14:06 999 MLS/HR Vancomycin HCl 1900 mg/Sodium Chloride 538 ml @ 200 mls/hr TODAY@1406 IV 08/03/16 14:06 08/03/16 18:00 DC 08/03/16 14:31 200 MLS/HR Magnesium Sulfate 1 gm/Prmx 100 ml @ 100 mls/hr Q1H IV 08/03/16 19:00 08/03/16 21:59 DC 08/03/16 20:39 100 MLS/HR Sodium Chloride (Nss 1000ml) 1,000 ml @ 100 mls/hr Q10H IV 08/03/16 19:15 09/02/16 19:14 08/04/16 04:03 100 MLS/HR Ondansetron HCl 4 mg 4 mg Q6H PRN IV 08/03/16 15:45 09/02/16 15:44 08/03/16 19:15 4 MG Piperacillin Sod/ Tazobactam Sod/ Dextrose (Zosyn Iv/D5 100ml) 115 ml @ 28.75 mls/ hr Q8H IV 08/03/16 20:00 08/10/16 13:59 08/04/16 04:03 28.75 MLS/HR Levothyroxine Sodium 100 mcg 100 mcg DAILYBB PO 08/04/16 06:00 09/03/16 06:59 08/04/16 04:04 100 MCG Pantoprazole Sodium 40 mg/ Syringe 10 ml @ 5 mls/min NOW ONCE IV 08/03/16 19:00 08/03/16 19:14 DC 08/03/16 19:11 5 MLS/MIN Acetaminophen/ Empty Bag (Ofirmev Iv/ Empty Iv Bag 100ml) 65 ml @ 260 mls/hr Q6H PRN IV 08/03/16 19:00 09/02/16 18:59 08/04/16 09:15 260 MLS/HR Lorazepam (Ativan Inj) 0.5 mg Q4H PRN IV 08/03/16 19:45 09/02/16 19:44 08/04/16 05:58 0.5 MG Filgrastim 300 mcg 300 mcg 2030 ONCE SQ 08/03/16 20:30 08/03/16 20:31 DC 08/03/16 20:40 300 MCG Levofloxacin/Prmx (Levaquin / D5W/ Premixed D5W) 150 ml @ 100 mls/hr Q48H IV 08/03/16 22:00 08/10/16 21:59 08/03/16 22:49 100 MLS/HR Subjective More comfortable today. He states he has general discomfort all over. Denies worsening shortness of breath. No diarrhea. Review of Systems: Constitutional: Negative for night sweats, or fever Eyes: Negative for event change of vision ENT: Negative for epistaxis, nasal discharge, sore throat, or deafness Cardiovascular: Negative for chest pain, palpitations, dizziness, diaphoresis Respiratory: Negative for new shortness of breath,hemoptysis, or purulent cough Gastrointestinal: Negative for diarrhea, hematemesis, melena, nausea, vomiting , or dyspepsia Integumentary (skin): Negative for rash or jaundice discoloration Genitourinary: Negative for urinary frequency, hematuria, or dysuria Neurological: No focal symptoms Lymphatic/Hematologic: Negative for petechiae, bleeding or new adenopathy Musculoskeletal: Negative for new joint or back pain Allergic/Immunologic: Negative for unusual rash or pruritis. Vital Signs Vital Signs Past 12 Hours Date Time Temp Pulse Resp B/P Pulse Ox O2 Delivery O2 Flow Rate FiO2 08/04/16 07:01 36.4 105 20 92 Room Air 08/04/16 05:00 36.6 105 18 91/56 95 Room Air 08/04/16 04:00 Room Air 08/04/16 01:51 36.8 109 20 104/70 95 Room Air 08/04/16 00:04 36.6 112 22 123/67 95 Room Air 08/04/16 00:01 Room Air 08/03/16 22:13 36.5 116 18 110/60 97 Room Air Physical Exam Constitutional: vitals are stable. Alert and oriented 3 Eyes: Eyes are ARTURO EOMI without conjuctival erythema or icterus. ENT: External examination was negative for masses. Neck: Negative for masses or palpable thyromegaly Respiratory: Lung sounds were generally clear bilaterally Cardiovascular: Heart was RRR without significant murmur, gallops aoe rubs Gastrointestinal: No palpable hepatic or splenomegaly. The abdomen was soft with normal bowel sounds. Lymphatic system: there was no palpable peripheral lymphadenopathy Musculoskeletal System: The musculoskeletal system seemed concordant with age. Skin: The skin was negative for jaundice. Neurologic exam: The exam was negative for any focal findings. Deep tendon reflexes were equal and symmetrical. Psychiatric exam: Was essentially negative with normal mood and effect. Extremities: Negative for significant edema Laboratory Last 24 Hours Test 08/03/16 13:50 08/03/16 13:58 08/03/16 14:11 08/03/16 16:13 White Blood Count 0.11 K/uL Red Blood Count 4.88 M/uL Hemoglobin 12.8 g/dL Hematocrit 38.5 % Mean Corpuscular Volume 78.9 fL Mean Corpuscular Hemoglobin 26.2 pg Mean Corpuscular Hemoglobin Concent 33.2 g/dl Platelet Count 38 K/uL RDW Standard Deviation 43.6 fL RDW Coefficient of Variation 15.1 % Neutrophils % (Manual) 0.0 % Lymphocytes % (Manual) 98.0 % Eosinophils % (Manual) 2.0 % Neutrophils # (Manual) 0.00 K/uL Total Absolute Neutrophils 0.00 K/uL Lymphocytes # (Manual) 0.11 K/uL Total Absolute Lymphocytes 0.11 K/uL Eosinophils # (Manual) 0.00 K/uL Giant Platelets 3+ Peripheral Blood Smear Path Consult Prothrombin Time 15.1 SECONDS Prothromb Time International Ratio 1.4 Sodium Level 137 mmol/L Potassium Level 4.8 mmol/L Chloride Level 104 mmol/L Carbon Dioxide Level 17 mmol/L Anion Gap 16.0 mmol/L 23.0 mmol/L Blood Urea Nitrogen 42 mg/dl Creatinine 3.40 mg/dl Est Creatinine Clear Calc Drug Dose 22.0 ml/min Estimated GFR () 19.8 Estimated GFR (Non- 17.0 BUN/Creatinine Ratio 12.2 Random Glucose 98 mg/dl Calcium Level 7.8 mg/dl Magnesium Level 1.2 mg/dl Total Bilirubin 2.4 mg/dl Direct Bilirubin 0.9 mg/dl Aspartate Amino Transf (AST/SGOT) 40 U/L Alanine Aminotransferase (ALT/SGPT) 43 U/L Alkaline Phosphatase 97 U/L Total Creatine Kinase 59 U/L Creatine Kinase MB 1.3 ng/ml Creatine Kinase MB Ratio 2.2 Troponin I 0.315 ng/ml Total Protein 5.5 gm/dl Albumin 2.6 gm/dl Bedside Lactic Acid Venous 7.40 mmol/L Bedside Hemoglobin 12.9 g/dl Bedside Hematocrit 38 % Bedside Sodium 135 mEq/L Bedside Potassium 4.9 mEq/L Bedside Chloride 102 mEq/L Bedside Total CO2 16 mEq/l Bedside Blood Urea Nitrogen 38 mg/dl Bedside Creatinine 3.3 mg/dl Bedside Glucose (other) 94 mg/dl Bedside Ionized Calcium (Nati) 1.03 mmol/l Lactic Acid Level 7.6 mmol/L Test 08/03/16 16:20 08/03/16 20:22 08/03/16 20:25 08/04/16 01:55 Influenza Type A (RT-PCR) Neg for Influ A Influenza Type B (RT-PCR) Neg for Influ B White Blood Count 0.04 K/uL Red Blood Count 4.09 M/uL Hemoglobin 10.7 g/dL Hematocrit 32.2 % Mean Corpuscular Volume 78.7 fL Mean Corpuscular Hemoglobin 26.2 pg Mean Corpuscular Hemoglobin Concent 33.2 g/dl Platelet Count 23 K/uL RDW Standard Deviation 44.3 fL RDW Coefficient of Variation 15.4 % Neutrophils % (Manual) 0.0 % Band Neutrophils % (Manual) 0.0 % Lymphocytes % (Manual) 98.0 % Variant Lymphocytes % (manual) 0.0 % Eosinophils % (Manual) 2.0 % Neutrophils # (Manual) 0.00 K/uL Total Absolute Neutrophils 0.00 K/uL Lymphocytes # (Manual) 0.04 K/uL Total Absolute Lymphocytes 0.04 K/uL Eosinophils # (Manual) 0.00 K/uL Percent Large Granular Lymphocytes 0.0 % Giant Platelets 2+ Sodium Level 140 mmol/L Potassium Level 4.7 mmol/L Chloride Level 109 mmol/L Carbon Dioxide Level 14 mmol/L Anion Gap 17.0 mmol/L Blood Urea Nitrogen 42 mg/dl Creatinine 3.00 mg/dl 3.10 mg/dl Est Creatinine Clear Calc Drug Dose 24.5 ml/min 23.7 ml/min Estimated GFR () 23.0 22.1 Estimated GFR (Non- 19.8 19.1 BUN/Creatinine Ratio 13.9 Random Glucose 90 mg/dl Calcium Level 6.6 mg/dl Magnesium Level 1.4 mg/dl Total Creatine Kinase 62 U/L 79 U/L Creatine Kinase MB 1.6 ng/ml 1.9 ng/ml Creatine Kinase MB Ratio 2.6 2.4 Troponin I 0.263 ng/ml 0.234 ng/ml Lactic Acid Level 10.0 mmol/L Random Vancomycin Level 12.9 mcg/ml Test 08/04/16 08:35 08/04/16 08:40 White Blood Count 0.11 K/uL Red Blood Count 3.96 M/uL Hemoglobin 10.5 g/dL Hematocrit 32.2 % Mean Corpuscular Volume 81.3 fL Mean Corpuscular Hemoglobin 26.5 pg Mean Corpuscular Hemoglobin Concent 32.6 g/dl Platelet Count 16 K/uL RDW Standard Deviation 47.7 fL RDW Coefficient of Variation 16.0 % Sodium Level 138 mmol/L Potassium Level 5.0 mmol/L Chloride Level 105 mmol/L Carbon Dioxide Level 14 mmol/L Anion Gap 19.0 mmol/L Blood Urea Nitrogen 45 mg/dl Creatinine 2.80 mg/dl Est Creatinine Clear Calc Drug Dose 26.3 ml/min Estimated GFR () 25.0 Estimated GFR (Non- 21.6 BUN/Creatinine Ratio 16.1 Random Glucose 164 mg/dl Calcium Level 6.4 mg/dl Magnesium Level 2.2 mg/dl Urine Color DK YELLOW Urine Appearance CLOUDY Urine pH 5.0 Urine Specific [place] 1.022 Urine Protein 1+ Urine Glucose (UA) NEG Urine Ketones TRACE Urine Occult Blood TRACE Urine Nitrite NEG Urine Bilirubin NEG Urine Urobilinogen NEG Urine Leukocyte Esterase NEG Urine WBC (Auto) 1-5 /hpf Urine RBC (Auto) 0-4 /hpf Urine Hyaline Casts (Auto) 1-5 /lpf Urine Epithelial Cells (Auto) 10-20 /lpf Urine Bacteria (Auto) NEG Urine Renal Epithelial Cells /lpf Urine Crystals AMORPHOUS SEDIMENT Urine Pathogenic Casts /lpf Urine Yeast (Auto) Assessment & Plan Gram-negative sepsis. Remains markedly neutropenic. Platelet number is also lower at 16,000. Renal function appears to be hopefully stable with today's creatinine of 2.8 Would recommend transfusing with one unit of pheresed platelets. Hydration ongoing. G-CSF of course should continue. Chest CT really does not reflect a significant infiltrate. Abdominal CT comments about changes consistent with a colitis affecting the descending colon. Condition remains rather tenuous.
[2016-08-04 10:18] LABS: COMPLETE YES; ECHINOCYTES 1+; GIANT PLATELETS 2+; LYMPH ABS # 0.11 K/uL (1.2-3.4)
[2016-08-04] MEDS ORDERED: SODIUM CHLORIDE 0.9% 1000ML 500 ML IV ONE (10:30)
[2016-08-04] MEDS ORDERED: VANCOMYCIN INJ 1,600 MG in SODIUM CHLORIDE 0.9% 500ML 500 ML IV ONE (10:30)
[2016-08-04] MEDS ORDERED: PANTOprazole INJ 40 MG in SYRINGE 0 ML IV SCH (11:00)
[2016-08-04] MEDS ORDERED: HYDROCORTISONE SOD SUCCINATE 100 MG/2 ML VIAL IV STA (11:06)
--- NOTE | 2016-08-04 11:21 | Critical Care Consultation ---
Critical Care Consultation Date of Consultation: Aug 04, 2016. Attending Physician: Goran Vazquez MD, PhD Reason for Consultation: Respiratory distress History of Present Illness Mr Philippe Cody is a 70 yo M with history of multiple cancers (nasopharyngeal, esophageal and prostate Ca). He also has a hx of CAD s/p CABG x 3, hypertension , CKD stage III and cerebral venous thrombosis. He is currently receiving chemotherapy with the [facility]. He is neutropenic and thrombocytopenic. He presented with chills, fever, and was found to be septic, presumably from a pneumonia. We were called today as his BP had continued to drop, despite Vanc, Zosyn, and Levaquin added. He was reviewed and was somnolent but still speaking coherently. He reported his breathing felt difficult. He clearly stated he would not want to be intubated in case it was necessary, but he would want CPR. 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 (13) H/O malignant neoplasm of prostate (14) HX OF IRRADIATION (15) HX-ORAL/PHARYNX MALG NEC (16) Hyperlipidemia Nec/Nos (17) Hypertension Nos (18) Odynophagia (19) Orthostatic hypotension (20) Pancytopenia (21) Sepsis (22) Syncope Surgical Problems: (1) Coronary artery bypass grafts x 3 (2) History of prostatectomy (3) S/P CABG x 3 (4) S/P cholecystectomy Family History Diabetes mellitus FHx: cancer Hypertension Social History Smoking Status: Never Smoker Drug Use: none Marital Status: Housing Status: lives with family Occupation Status: retired Allergies Coded Allergies: Doxycycline (Verified Adverse Reaction, Intermediate, GI SYMPTOMS, ) Home Medications Scheduled Amiloride Hcl (Amiloride Hcl), 5 MG PO DAILY Atorvastatin (Lipitor), 40 MG PO DAILY Capecitabine (Xeloda), 1,000 MG PO BID Enoxaparin (Lovenox), 40 MG SQ QPM Fludrocortisone Acetate (Florinef), 0.1 MG PO DAILY Levothyroxine Sodium (Levothyroxine Sodium), 100 MCG PO DAILY Pantoprazole (Protonix), 40 MG PO DAILY Prochlorperazine Maleate (Prochlorperazine Maleate), 10 MG PO PRN UD Scheduled PRN Ondansetron (Ondansetron HCl), 8 MG PO Q8 PRN for Nausea Zolpidem Tartrate (Zolpidem Tartrate), 5 MG PO HS PRN for Insomnia Current Inpatient Medications Current Inpatient Medications Medications (Trade) Dose Ordered Sig/Mckinley Route Start Time Stop Time Status Last Admin Dose Admin Sodium Chloride (Nss 1000ml) 1,000 ml @ 100 mls/hr Q10H IV 08/03/16 19:15 09/02/16 19:14 08/04/16 10:52 100 MLS/HR Acetaminophen (Tylenol Tab) 650 mg Q4H PRN PO 08/03/16 15:45 09/02/16 15:44 Al Hydrox/Mg Hydrox/Simethicone (Maalox Max Susp) 15 ml Q4H PRN PO 08/03/16 15:45 09/02/16 15:44 Magnesium Hydroxide (Milk Of Magnesia Susp) 30 ml Q12H PRN PO 08/03/16 15:45 09/02/16 15:44 Ondansetron HCl (Zofran Inj) 4 mg Q6H PRN IV 08/03/16 15:45 09/02/16 15:44 08/03/16 19:15 4 MG Polyethylene 17 gm 17 gm DAILY PRN PO 08/03/16 15:45 09/02/16 15:44 Piperacillin Sod/ Tazobactam Sod/ Dextrose (Zosyn Iv/D5 100ml) 115 ml @ 28.75 mls/ hr Q8H IV 08/03/16 20:00 08/10/16 13:59 08/04/16 04:03 28.75 MLS/HR Fludrocortisone Acetate (Florinef Tab) 0.1 mg DAILY PO 08/04/16 09:00 09/03/16 08:59 Levothyroxine Sodium (Synthroid Tab) 100 mcg DAILYBB PO 08/04/16 06:00 09/03/16 06:59 08/04/16 04:04 100 MCG Zolpidem Tartrate 5 mg 5 mg HS PRN PO 08/03/16 15:45 09/02/16 15:44 Ondansetron HCl 8 mg/Dextrose 54 ml @ 200 mls/hr Q6H PRN IV 08/03/16 15:45 09/02/16 15:44 Acetaminophen/ Empty Bag (Ofirmev Iv/ Empty Iv Bag 100ml) 65 ml @ 260 mls/hr Q6H PRN IV 08/03/16 19:00 09/02/16 18:59 08/04/16 09:15 260 MLS/HR Vancomycin HCl (Consult) 1 ea UD PRN N/A 08/03/16 19:15 09/02/16 19:14 Piperacillin Sod/ Tazobactam Sod 1 ea 1 ea UD PRN N/A 08/03/16 19:15 09/02/16 19:14 Pantoprazole Sodium/Syringe (Protonix Inj/ Syringe) 10 ml @ 5 mls/min DAILY@11 IV 08/04/16 11:00 09/03/16 10:59 08/04/16 10:34 5 MLS/MIN Lorazepam 0.5 mg 0.5 mg Q4H PRN IV 08/03/16 19:45 09/02/16 19:44 08/04/16 05:58 0.5 MG Lorazepam/Syringe (Ativan Inj/ Syringe) 1 ml @ 1 mls/min Q4H PRN IV 08/03/16 19:45 09/02/16 19:44 Filgrastim 300 mcg 300 mcg Q24H SQ 08/04/16 20:00 08/08/16 19:59 Levofloxacin/Prmx (Levaquin / D5W/ Premixed D5W) 150 ml @ 100 mls/hr Q48H IV 08/03/16 22:00 08/10/16 21:59 08/03/16 22:49 100 MLS/HR Levofloxacin (Consult) 1 ea UD PRN N/A 08/03/16 21:45 09/02/16 21:44 Heparin Sodium (Porcine) 5 ml 5 ml PRN PRN IV 08/04/16 01:45 09/03/16 01:44 Vancomycin HCl/ Sodium Chloride (Vancomycin Inj/ Nss 500ml) 532 ml @ 200 mls/hr 1030 ONCE IV 08/04/16 10:30 08/04/16 13:09 08/04/16 10:37 200 MLS/HR Hydrocortisone Sodium Succinate (Solu-Cortef IV) 100 mg NOW STAT IV 08/04/16 11:06 08/04/16 11:07 UNV Review of Systems Unable to obtain ROS due to acute respiratory distress. Physical Exam Date Time Temp Pulse Resp B/P Pulse Ox O2 Delivery O2 Flow Rate FiO2 08/04/16 07:01 36.4 105 20 90/58 92 Room Air 88/44 08/04/16 05:00 36.6 105 18 91/56 95 Room Air 08/04/16 04:00 Room Air 08/04/16 01:51 36.8 109 20 104/70 95 Room Air 08/04/16 00:04 36.6 112 22 123/67 95 Room Air 08/04/16 00:01 Room Air 08/03/16 22:13 36.5 116 18 110/60 97 Room Air 08/03/16 20:00 Room Air 08/03/16 19:30 36.8 142 26 117/75 96 Room Air 08/03/16 17:58 36.5 133 22 138/73 96 Room Air 08/03/16 16:25 117 94 08/03/16 16:00 128/68 08/03/16 15:55 114 29 95 08/03/16 15:25 113 28 92 08/03/16 15:11 132/78 08/03/16 15:00 125/72 08/03/16 14:55 112 34 100 08/03/16 14:54 113 20 142/77 98 Room Air 08/03/16 14:51 142/77 08/03/16 14:30 114/66 08/03/16 14:25 109 29 94 08/03/16 14:20 110 22 97 Room Air 08/03/16 14:19 99/63 08/03/16 14:15 113 27 96 Room Air 08/03/16 14:10 116 38 97 Room Air 08/03/16 14:05 116 38 96 Room Air 08/03/16 14:00 116 37 99/66 08/03/16 13:55 118 36 90 Room Air 08/03/16 13:53 119 08/03/16 13:50 119 29 92 Room Air 08/03/16 13:45 120 26 94 Room Air 08/03/16 13:40 117 32 92 Room Air 08/03/16 13:30 85/54 08/03/16 13:10 36.3 124 26 117/61 94 Room Air GENERAL: Awake, alert, pale, in moderate distress HENT: Normocephalic, atraumatic. Oropharynx unremarkable. Port in R chest. EYES: Normal conjunctiva. Sclera non-icteric. NECK: Supple. No nuchal rigidity. FROM. No JVD. RESPIRATORY: Crackles audible at bases. CARDIAC: Regular rate, normal rhythm. Extremities warm and well perfused. Pulses equal. ABDOMEN: Soft, non-distended. No tenderness to palpation. No rebound or guarding. No masses. RECTAL: Deferred. MUSCULOSKELETAL: Chest examination reveals no tenderness. The back is symmetrical on inspection without obvious abnormality. There is no CVA tenderness to palpation. No joint edema. LOWER EXTREMITIES: Calves are equal size bilaterally and non-tender. No edema. No discoloration. NEURO: Normal sensorium. No sensory or motor deficits noted. SKIN: No rash or jaundice noted. Laboratory Results Last 24 Hours Test 08/03/16 13:50 08/03/16 13:58 08/03/16 14:11 08/03/16 16:13 White Blood Count 0.11 K/uL Red Blood Count 4.88 M/uL Hemoglobin 12.8 g/dL Hematocrit 38.5 % Mean Corpuscular Volume 78.9 fL Mean Corpuscular Hemoglobin 26.2 pg Mean Corpuscular Hemoglobin Concent 33.2 g/dl Platelet Count 38 K/uL RDW Standard Deviation 43.6 fL RDW Coefficient of Variation 15.1 % Neutrophils % (Manual) 0.0 % Lymphocytes % (Manual) 98.0 % Eosinophils % (Manual) 2.0 % Neutrophils # (Manual) 0.00 K/uL Total Absolute Neutrophils 0.00 K/uL Lymphocytes # (Manual) 0.11 K/uL Total Absolute Lymphocytes 0.11 K/uL Eosinophils # (Manual) 0.00 K/uL Giant Platelets 3+ Peripheral Blood Smear Path Consult Prothrombin Time 15.1 SECONDS Prothromb Time International Ratio 1.4 Sodium Level 137 mmol/L Potassium Level 4.8 mmol/L Chloride Level 104 mmol/L Carbon Dioxide Level 17 mmol/L Anion Gap 16.0 mmol/L 23.0 mmol/L Blood Urea Nitrogen 42 mg/dl Creatinine 3.40 mg/dl Est Creatinine Clear Calc Drug Dose 22.0 ml/min Estimated GFR () 19.8 Estimated GFR (Non- 17.0 BUN/Creatinine Ratio 12.2 Random Glucose 98 mg/dl Calcium Level 7.8 mg/dl Magnesium Level 1.2 mg/dl Total Bilirubin 2.4 mg/dl Direct Bilirubin 0.9 mg/dl Aspartate Amino Transf (AST/SGOT) 40 U/L Alanine Aminotransferase (ALT/SGPT) 43 U/L Alkaline Phosphatase 97 U/L Total Creatine Kinase 59 U/L Creatine Kinase MB 1.3 ng/ml Creatine Kinase MB Ratio 2.2 Troponin I 0.315 ng/ml Total Protein 5.5 gm/dl Albumin 2.6 gm/dl Bedside Lactic Acid Venous 7.40 mmol/L Bedside Hemoglobin 12.9 g/dl Bedside Hematocrit 38 % Bedside Sodium 135 mEq/L Bedside Potassium 4.9 mEq/L Bedside Chloride 102 mEq/L Bedside Total CO2 16 mEq/l Bedside Blood Urea Nitrogen 38 mg/dl Bedside Creatinine 3.3 mg/dl Bedside Glucose (other) 94 mg/dl Bedside Ionized Calcium (Nati) 1.03 mmol/l Lactic Acid Level 7.6 mmol/L Test 08/03/16 16:20 08/03/16 20:22 08/03/16 20:25 08/04/16 01:55 Influenza Type A (RT-PCR) Neg for Influ A Influenza Type B (RT-PCR) Neg for Influ B White Blood Count 0.04 K/uL Red Blood Count 4.09 M/uL Hemoglobin 10.7 g/dL Hematocrit 32.2 % Mean Corpuscular Volume 78.7 fL Mean Corpuscular Hemoglobin 26.2 pg Mean Corpuscular Hemoglobin Concent 33.2 g/dl Platelet Count 23 K/uL RDW Standard Deviation 44.3 fL RDW Coefficient of Variation 15.4 % Neutrophils % (Manual) 0.0 % Band Neutrophils % (Manual) 0.0 % Lymphocytes % (Manual) 98.0 % Variant Lymphocytes % (manual) 0.0 % Eosinophils % (Manual) 2.0 % Neutrophils # (Manual) 0.00 K/uL Total Absolute Neutrophils 0.00 K/uL Lymphocytes # (Manual) 0.04 K/uL Total Absolute Lymphocytes 0.04 K/uL Eosinophils # (Manual) 0.00 K/uL Percent Large Granular Lymphocytes 0.0 % Giant Platelets 2+ Sodium Level 140 mmol/L Potassium Level 4.7 mmol/L Chloride Level 109 mmol/L Carbon Dioxide Level 14 mmol/L Anion Gap 17.0 mmol/L Blood Urea Nitrogen 42 mg/dl Creatinine 3.00 mg/dl 3.10 mg/dl Est Creatinine Clear Calc Drug Dose 24.5 ml/min 23.7 ml/min Estimated GFR () 23.0 22.1 Estimated GFR (Non- 19.8 19.1 BUN/Creatinine Ratio 13.9 Random Glucose 90 mg/dl Calcium Level 6.6 mg/dl Magnesium Level 1.4 mg/dl Total Creatine Kinase 62 U/L 79 U/L Creatine Kinase MB 1.6 ng/ml 1.9 ng/ml Creatine Kinase MB Ratio 2.6 2.4 Troponin I 0.263 ng/ml 0.234 ng/ml Lactic Acid Level 10.0 mmol/L Random Vancomycin Level 12.9 mcg/ml Test 08/04/16 08:35 08/04/16 08:40 08/04/16 10:30 08/04/16 10:38 White Blood Count 0.11 K/uL Red Blood Count 3.96 M/uL Hemoglobin 10.5 g/dL Hematocrit 32.2 % Mean Corpuscular Volume 81.3 fL Mean Corpuscular Hemoglobin 26.5 pg Mean Corpuscular Hemoglobin Concent 32.6 g/dl Platelet Count 16 K/uL RDW Standard Deviation 47.7 fL RDW Coefficient of Variation 16.0 % Neutrophils % (Manual) 0.0 % Lymphocytes % (Manual) 97.0 % Eosinophils % (Manual) 2.0 % Basophils % (Manual) 1.0 % Neutrophils # (Manual) 0.00 K/uL Total Absolute Neutrophils 0.00 K/uL Lymphocytes # (Manual) 0.11 K/uL Total Absolute Lymphocytes 0.11 K/uL Eosinophils # (Manual) 0.00 K/uL Basophils # (Manual) 0.00 K/uL Giant Platelets 2+ Echinocytes 1+ Sodium Level 138 mmol/L Potassium Level 5.0 mmol/L Chloride Level 105 mmol/L Carbon Dioxide Level 14 mmol/L Anion Gap 19.0 mmol/L Blood Urea Nitrogen 45 mg/dl Creatinine 2.80 mg/dl Est Creatinine Clear Calc Drug Dose 26.3 ml/min Estimated GFR () 25.0 Estimated GFR (Non- 21.6 BUN/Creatinine Ratio 16.1 Random Glucose 164 mg/dl Calcium Level 6.4 mg/dl Magnesium Level 2.2 mg/dl Total Bilirubin 2.2 mg/dl Direct Bilirubin 1.2 mg/dl Aspartate Amino Transf (AST/SGOT) 50 U/L Alanine Aminotransferase (ALT/SGPT) 44 U/L Alkaline Phosphatase 60 U/L Total Protein 5.0 gm/dl Albumin 2.1 gm/dl Urine Color DK YELLOW Urine Appearance CLOUDY Urine pH 5.0 Urine Specific [place] 1.022 Urine Protein 1+ Urine Glucose (UA) NEG Urine Ketones TRACE Urine Occult Blood TRACE Urine Nitrite NEG Urine Bilirubin NEG Urine Urobilinogen NEG Urine Leukocyte Esterase NEG Urine WBC (Auto) 1-5 /hpf Urine RBC (Auto) 0-4 /hpf Urine Hyaline Casts (Auto) 1-5 /lpf Urine Epithelial Cells (Auto) 10-20 /lpf Urine Bacteria (Auto) NEG Urine Renal Epithelial Cells /lpf Urine Crystals AMORPHOUS SEDIMENT Urine Pathogenic Casts /lpf Urine Yeast (Auto) Creatine Kinase MB Ratio Test 08/04/16 11:02 Assessment & Plan Course of events up to / upon arrival to ICU: - 11AM : Reviewed pt in room 244. He clearly stated he did not want intubation. He would want CPR. - 1130: He was transferred to the ICU. We discussed his care with his . They agree for central and arterial line. - 1150: His breathing had deteriorated. His sats were 89%< but then came up to 94% when on nasal cannula. We had his come see him. He did not want the NRB mask. He reported his breathing was difficult to do. - 1158: He was given 2mg IV morphine for respiratory distress. - 1230: His breathing had improved. Left IJ central line was placed. - 1245: Arterial line was placed in L radial artery. Pts BP and mentation had both improved. - 1445: Pts BP had improved to 140/70. Family was present. Denied any concerns. PROBLEM LIST 1. Acute hypoxic respiratory failure, refusing intubation, tolerating nasal cannula 2. Gram negative bacilli bacteremia 3. Shock, likely presumed to pneumonia 4. Hypotension, requiring pressor support 5. 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 Neutropenia and thrombocytopenia, due to chemotherapy 7. Coronary artery disease, s/p CABG x 3 vessels 8. Acute on chronic renal insufficiency 9. History of gastritis KIPNUK II SCORE: 26 on admission to ICU 51% estimated non operative mortality SOFA SCORE: 12 - 95% mortality RESEARCH INTERN/Neuro: GCS: 14, RASS 0, CAM negative Focal Signs: None Sedation/pain control: Morphine 2mg IV provided Restraints: Bilateral soft wrist Neurologic prophylaxis: Not indicated Respiratory: Chest X-ray (08/03): IMPRESSION: Interval development of infiltrative changes involving the lingula and left upper lung HOB up 30 degrees: Yes Chlorhexidine: Yes Respiratory prophylaxis: Albuterol Cardiovascular: CV drips: BP improved with Levophed, started at 5 mcg/kg/hr Rhythm: Sinus EKG: Accelerated junctional rhythm, 122bpm, QTc 422 ECHO: Echo dated 01/15/17: LV normal size, hyperdynamic, EF > 70%, Class I diastolic disfunction Fluids/Renal: IV Fluids: Normosol 150mL/hour Net Urine: +4824mL Wright: Present GI/Nutrition: Feeding: NPO Prophylaxis: On PPI Bowel movements: 2 Stool softeners: N/A Endocrine: Last 24 hour glucose: Ranging 98 - 164 Insulin protocol: No; Drip: No Hematology: Hemoglobin 10.5, Hct 32.3 DVT prophylaxis: Hold Infectious Disease/Immunology: Tmax: 36.6 CV Lines (date): Port placed Antimicrobials: Vancomycin day 2/10 Zosyn day 2/10 Levaquin day 1, q48h Cultures: Blood: GRAM NEG bacilli x 2 botles Stool: No C Diff Urine: Pending MRSA: Negative Resident Physician Supervision Note: Dr. Pratt was resident physician during care of patient. I separately evaluated patient and did history and exam. I discussed the case with the resident and generally agree with the findings and plan. Patient was transferred in gram-negative septic shock for further evaluation and management. At this point I have changed his vancomycin and Zyvox given the changing renal function and that could impact his vancomycin levels. Consult infectious disease, I discussed the case with Dr. Cruz. Patient has an extremely poor prognosis, discussed this with his . He does not want to be intubated under any circumstances, however, he does want to attempt to be resuscitated if he could have quality of life. I informed him if we were going to place a breathing tube my chances of success of cardiopulmonary resuscitation organ to be minimal, however he reiterated is not want to be intubated. Patient is critically ill due to gram-negative septic shock, I have personally spent 80 minutes of critical care time in the direct management of this patient. This is a life/limb threatening event. This includes time spent evaluating patient, direct bedside care, chart review, placing orders, interpretation of diagnostic studies, discussion with consultants, patient, and family members, as well as other required patient management activities. This time is exclusive of all separately billable procedures, and teaching time and separate from and in addition to any other critical care service time. Documented By: Quinten Dawson DO Resident Tracking Resident Involvement: Resident Care Provided Care Provided: Adult Hospital Medicine (ICU)
[2016-08-04] MEDS ORDERED: HYDROCORTISONE IV 100 MG in SYRINGE 0 ML IV SCH (11:30)
[2016-08-04] MEDS ORDERED: MoRPHine SULFATE 2 MG/ML CARP IV STA (11:54)
[2016-08-04] MEDS ORDERED: MoRPHine SULFATE 2 MG/ML CARP ONE (12:00)
[2016-08-04] MEDS ORDERED: NOREPINEPHRINE BITARTRATE 1 MG/ML 4 ML VIAL ONE (12:09)
[2016-08-04] MEDS ORDERED: NOREPINEPHRINE BIT INJ 8 MG in DEXTROSE 5% 500ML 500 ML IV PRN (12:45)
--- NOTE | 2016-08-04 12:53 | Procedure Note ---
Procedure Note Procedure Date Aug 04, 2016. (Merline Pratt MD) I was physically present during the entire procedure and personally assisted. Critical Care Medicine Point of Care Bedside Ultrasound Procedure: Procedural Ultrasound Procedure Date: US guided CVL access Indication: hypotension, gram-negative septic shock Attending: Ramon Dawson DO Resident/Physician Character Artist: Terence Organs Examined: Left Internal jugular vein, left carotid artery Objects visualized: Guidewire If for central venous access Artery AND Vein visualized: y Compressible Vein: y Guidewire or Short Catheter seen in vein prior to dilation: y Line confirmed in Vein with ultrasound: y Lung Sliding on side of attempt (if applicable): na If no lung sliding or not obtained has CXR been ordered: y Impression: successful Left IJ CVL Plan: review post-procedure CXR Images obtained are saved for permanent record (Quinten Dawson, D.O.) Central Line Procedure time out: side/site verified, patient ID confirmed, sterile procedure used Consent obtained: written, verbal Time of procedure: 12:30 Performed by: attending (Dr Dawson), resident (Merline Pratt MD.) Indications: poor venous access, central drug admin. (pressor support) Prep: chlorhexadine prep, sterile drape, sterile procedures used Anesthesia: lidocaine 1% with epi Volume anesthetic (ml's): 3 Central line lumen: triple Central line location: internal jugular (L) Additional details: ultrasound guidance, Selinger technique used, line not sutured (held in place with StatLock), good blood return Complications: none Patient tolerated procedure: well Post-procedure vital signs: reviewed and stable (Merline Pratt MD)
--- NOTE | 2016-08-04 13:08 | Procedure Note ---
Procedure Note Procedure Date Aug 04, 2016. Procedure Description Procedure Name: left radial arterial line Procedure time out: side/site verified, patient ID confirmed, correct procedure Consent obtained: written Time of procedure: 13:00 Performed by: attending Indications: diagnostic Contraindications: other Description: Left wrist was prepped and draped with chlorhexidine in a sterile fashion. 2mL of 1% lidocaine was used the anesthetize the area. The left radial artery was identified via dynamic US. A 20 gauge arterial line was placed by modified Seldinger technique. Complications: none Patient tolerated procedure: well Post-procedure vital signs: reviewed and stable Comments: Critical Care Medicine Point of Care Bedside Ultrasound Procedure: Procedural Ultrasound Procedure Date: Left radial artery Indication: hypotension gram negative sepsis Attending: Ramon Dawson DO Resident/Physician Design Architect: Terence Organs Examined: Left radial artery Objects visualized: guidewire If for central venous access Artery visualized: y Guidewire or Short Catheter seen in artery: y Impression: Successful Left arterial line placement. Images obtained are saved for permanent record
--- NOTE | 2016-08-04 13:26 | CARDIOLOGY CONSULTATION ---
DATE OF CONSULTATION: 08/04/2016 PRIMARY PHYSICIAN: Jovani Olvera MD REFERRING PHYSICIAN: Goran Vazquez MD ATTENDING PHYSICIAN: Goran Vazquez MD CONSULTATION: Ayden Mcfarland MD HISTORY OF PRESENT ILLNESS: The patient is a 70-year-old white male with a history of coronary artery disease, hypertension, dyslipidemia, hypothyroidism, prostate cancer, nasopharyngeal cancer, and esophageal cancer. In regards to his cardiac history, he sustained a non-ST elevation myocardial infarction in November of 2012. Cardiac catheterization performed at [facility] revealed multivessel coronary artery disease. He underwent CABG surgery x3 vessels on 12/05/2012; left intramammary artery to LAD, vein graft to left circumflex marginal, and saphenous vein graft to PDA. He had no post-surgical cardiac complications. Since his bypass surgery, he has done well from a cardiac standpoint. Cardiac imaging in the form of a transthoracic echocardiogram performed on 01/16/2016 revealed hyperdynamic LV systolic function. No regional wall motion abnormalities of the left ventricle. LV ejection fraction greater than 70%. Type 1 LV diastolic dysfunction. No significant valvular abnormalities. Since his bypass surgery, the patient has done well from a cardiac standpoint. He was not experiencing any chest pain or other anginal type pains. Normally when he is at his baseline, he has no dyspnea at rest or with his normal activities. No orthopnea, PND, palpitations, lightheadedness, syncope, or peripheral edema. This is when he is stable from oncology standpoint. However, over the past few years, he has had recurrent issues with malignancies. His cancer history dates back to 2002 when he underwent a prostatectomy for prostate carcinoma. Recurrent prostate cancer noted in 2007, requiring a radiation therapy. Also, history of radiation therapy for nasopharyngeal cancer in 2009. At the time of his bypass surgery in 2012, he was found to have lower esophageal mass, which was esophageal cancer. Following recovery from his bypass surgery, he underwent radiation therapy and chemotherapy. He had evidence of metastatic disease to his lung in 2016. He underwent chemotherapy. He now has recently had evidence of recurrence of metastatic disease. He has recently been started on chemotherapy for the metastatic disease. He presented to the Emergency Department yesterday with a 24-hour complaint of weakness, fatigue, and shaking chills. This was accompanied by sensation of confusion. He and his deny that he had any associated chest pains or other anginal type pains. At the time of admission, no complaints of dyspnea. On arrival to the Emergency Department yesterday afternoon, his oral temperature was 36.3. His pulse rate was 124. Blood pressure 117/61. Subsequent blood pressure was documented to be 85/54. He was started on intravenous fluids as well as intravenous antibiotics. He was admitted to the telemetry unit. Since admission, he denies any chest pain or other anginal type pains. He has episodes where he is confused. This is by the nursing staff and his 's accounts. He denies any dyspnea to me. He does complain of profound weakness as well as diffuse myalgias. He denies any pain anywhere in his body. He has been noted by the nursing staff to be quite lethargic today. PAST MEDICAL HISTORY: 1. As above. 2. History of cerebral venous thrombosis. Treated with anticoagulation therapy. 3. Coronary artery disease. Status post CABG x3. 4. Chronic kidney disease. 5. Metastatic adenocarcinoma of the esophagus. 6. History of dural sinus thrombosis. 7. Dyslipidemia. 8. History of hypertension. 9. History of hypomagnesemia after chemotherapy. 10. Hypothyroidism. 11. History of nasopharyngeal cancer, treated with radiation therapy. 12. History of prostate cancer treated with prostatectomy and then radiation therapy. 13. Osteoarthritis. 14. History of vitamin D deficiency. 15. History of radiation esophagitis. 16. History of mucositis orally. 17. History of dehydration. PAST SURGICAL HISTORY: 1. Status post CABG surgery. 2. Status post cholecystectomy. 3. Status post nasopharyngeal surgery. 4. Status post radical prostatectomy. 5. Status post tonsillectomy. SOCIAL HISTORY: The patient is . Lives with his . He has never smoked cigarettes. FAMILY HISTORY: History of Alzheimer's disease and heart disease as well as peripheral vascular disease in his mother. History of depression and hypertension in a brother. ALLERGIES AND ADVERSE DRUG REACTIONS: TRAMADOL, DOXYCYCLINE, AND NORFLEX. CURRENT MEDICATIONS: Neupogen 300 mcg subQ q. 24 hours, pantoprazole 40 mg IV daily, vancomycin 1600 mg IV daily, Florinef 0.1 mg daily, levothyroxine 100 mcg daily, levofloxacin 750 mg IV daily, piperacillin/tazobactam 3.375 grams IV q. 8 hours, and several p.r.n. medications. He is currently receiving a bolus of normal saline. He has received 1 gram of intravenous magnesium sulfate last evening. He received a total of 3 bags of magnesium sulfate, total dose was 3 grams. REVIEW OF SYSTEMS: As above. PHYSICAL EXAMINATION: GENERAL: The patient is lying in bed. He is lethargic. He is arousable. He is oriented to name and place. He recognizes me. He appears to be in moderate distress. He is tachypneic. MOUTH: Dry mucous membranes. NECK: Unable to evaluate jugular venous pressure secondary to neck size. Carotids are 2/2 bilaterally. No bruits heard. LUNGS: No rales or wheezes. No rhonchi. HEART: Increased rate. Regular rhythm. 1/6 systolic murmur at the second right intercostal space. No diastolic murmur or rub. ABDOMEN: Hypoactive bowel sounds. Soft. Nontender. No palpable masses or organomegaly. EXTREMITIES: No pretibial edema. Distal pulses weakly palpable. NEUROLOGIC: The patient is arousable. Oriented to name and place. LABORATORY DATA: CBC today with WBC 0.11. Neutrophil count is 0.00. Lymphocytes 0.11. Hemoglobin 10.5, hematocrit 32.2, and platelet count 16,000. INR yesterday was 1.4. Metabolic profile today with sodium 138, potassium 5.0, chloride 105, carbon dioxide 14, anion gap 19, BUN 45, creatinine 2.80, and random glucose 164. Magnesium today is 2.2. Yesterday was 1.4. Troponin I since yesterday had been 0.315, 0.362, and 0.234. CK totals 59, 62, and 79 with respective MBs of 1.3, 1.6, and 1.9. Lactic acid last evening was 10.0. Repeat lactic acid level is currently pending. Total bilirubin this morning 2.2. Direct bilirubin 1.2. AST 50 and ALT 44. Electrocardiogram since admission reviewed by me. Electrocardiogram at 02:02 p.m. yesterday with sinus tachycardia and ST depressions in V2-V4 suggestive of ischemia. Electrocardiogram performed this morning with sinus tachycardia at a rate of 105 beats per minute. Low QRS voltage. Nonspecific ST and T wave abnormalities. Chest x-ray performed yesterday and reviewed by me without heart failure. Radiologist did report lingular infiltrate and minimal infiltrative changes in the left suprahilar region. Chest CT scan by report yesterday with evidence of emphysema. Increased heart size. No airspace consolidation or pleural effusion. Enlarge right peritracheal lymph node. ASSESSMENT: 1. Neutropenia secondary to chemotherapy. 2. Sepsis and dehydration. 3. Hypotension secondary to sepsis and dehydration. 4. Severe thrombocytopenia. No current bleeding. 5. Longstanding history of coronary artery disease. Status post CABG surgery. Since his bypass surgery in 2012, he has done well from a cardiac standpoint. Echocardiogram last year revealed hyperdynamic left ventricular systolic function. Prior to his recent recurrence of esophageal cancer, he was feeling well. He was not experiencing any anginal symptoms. His exercise tolerance had been stable. No current anginal type complaints. The troponin I's are mildly elevated. This is clearly expected in the presence of sustained tachycardia and low blood pressures. This could occur from myocardial oxygen supply and demand even in the absence of any underlying obstructive coronary artery disease. His electrocardiogram on admission revealed changes suggestive of ischemia. No diagnostic changes of myocardial injury. Today's electrocardiogram reveals only nonspecific ST and T wave abnormalities. Clearly do not suspect an acute coronary process at this time. 6. No evidence of congestive heart failure on exam or chest x-ray. 7. Acute on chronic renal failure. 8. Alteration in mental status secondary to dehydration and sepsis. 9. Significant metabolic acidosis based on serum CO2, increased anion gap, and elevated lactic acid level yesterday. RECOMMENDATIONS: 1. From a cardiac standpoint, there are no recommendations. Antiplatelet therapy is contraindicated because of his thrombocytopenia. Anticoagulation therapy is currently contraindicated because of the severe thrombocytopenia. 2. Would not give any medications to slow his heart rate as this is a reflex tachycardia. 3. Intravenous fluids for volume resuscitation. 4. Consider pressor support. 5. Strongly recommend that he be transferred to the intensive care. The patient is critically ill at this time. This recommendation was discussed with Dr. Vazquez. The patient is on the process of being transferred to the intensive care unit. 6. Manager Food consultation. 7. Continue broad spectrum antibiotics. 8. Assess arterial blood gas. 9. Other than followup electrocardiograms, no cardiac testing necessary at this time. 10. As stated above, the sahni issue is to treat his underlying severe illness, which at this time consists of severe neutropenia, sepsis, hypotension, dehydration, and thrombocytopenia.
--- NOTE | 2016-08-04 13:43 | Pharmacy Progress Note ---
Pharmacy Antibiotic Prog Note Date of Service Aug 04, 2016. Subjective The patient is currently receiving the following antimicrobial agents per Pharmacy consult: -Vancomycin IV based on random levels due to acute on chronic kidney disease -Zosyn 3.375 mg IV every 8 hours Objective Height (Feet): 5 Height (Inches): 7.00 Weight (Kilograms): 95.600 Levels: Item Value Date Time Random Vancomycin Level 12.9 mcg/ml 08/04/16 0155 Lab Results (24hrs): Laboratory Tests Test 08/03/16 13:50 08/03/16 20:22 08/04/16 01:55 08/04/16 08:35 BUN/Creatinine Ratio 12.2 13.9 16.1 Blood Urea Nitrogen 42 mg/dl 42 mg/dl 45 mg/dl Creatinine 3.40 mg/dl 3.00 mg/dl 3.10 mg/dl 2.80 mg/dl White Blood Count 0.11 K/uL 0.04 K/uL 0.11 K/uL Red Blood Count 4.88 M/uL 4.09 M/uL 3.96 M/uL Hemoglobin 12.8 g/dL 10.7 g/dL 10.5 g/dL Hematocrit 38.5 % 32.2 % 32.2 % Mean Corpuscular Volume 78.9 fL 78.7 fL 81.3 fL Mean Corpuscular Hemoglobin 26.2 pg 26.2 pg 26.5 pg Mean Corpuscular Hemoglobin Concent 33.2 g/dl 33.2 g/dl 32.6 g/dl Platelet Count 38 K/uL 23 K/uL 16 K/uL Micro Results: Item Value Date Time Blood Culture - Preliminary Resulted 08/03/16 1350 Blood Gram Negative Bacilli Blood Culture - Preliminary Resulted 08/03/16 1400 Blood Gram Negative Bacilli C.difficile Toxin B Gene (PCR) - Final Complete 08/03/16 1835 Stool No C. difficile toxin B gene detected MRSA DNA Surveillance Screen - Final Complete 08/03/16 2349 Nasal Specimen Negative for MRSA by DNA Probe Urine Culture Received 08/04/16 0840 Urine , Clean Catch Pending Blood Culture Bonita Batch 08/04/16 1255 Blood Pending Blood Culture Bonita Batch 08/04/16 1255 Blood Pending Assessment & Plan Assessment 70 yr old cytopenic male with h/o CKD stage II, esophageal cancer with lung mets and prostate cancer admitted with sepsis, suspected lung source. Patient is currently receiving chemotherapy - last dose of Taxol was 07/30. Patient has been started on Neupogen for neutropenia. He was started on empiric treatment with Vanc + Zosyn + Levaquin IV. Transferred to the ICU on 08/04 - hypotensive requiring pressor support. Preliminary BC growing GNB (05/24). Plan Continue Vancomycin + Zosyn + Levaquin IV for empiric treatment of sepsis, lung source Vancomycin * Patient was given Vanc 1900 mg IV on 08/03 at 1431 - random level @ 0155 was 12.9 mcg/mL * Scr improving; 3.4 -> 2.8 mg/dL (baseline ~1.4 mg/dL) * Re-dose patient with Vanc 1600 mg (17 mg/kg) x 1. * A random level and repeat Scr will be ordered for 08/05 @ 0000 to ensure appropriate vancomycin levels due to severity of illness. * Goal trough level estimate for sepsis: between 15 - 20 mcg/mL. * Ordered MRSA nasal swab to guide possible de-escalation of antimicrobial therapy * MRSA swab resulted as negative, pt is growing GNB in 2 BC * Discussed stopping vancomycin with Dr. Vazquez. He wishes to continue for now due to critically ill status. Zosyn * Increase dose to 4.5 g IV every 8 hours for CrCl greater than 20 ml/min Pharmacy will continue to follow and will adjust dose/frequency as necessary. Thank you
[2016-08-04] MEDS: NORMOSOL R 1,000 ML IV SCH ×2 (13:50→20:13)
--- NOTE | 2016-08-04 13:52 | DIAGNOSTIC IMAGING REPORT ---
CHEST ONE VIEW PORTABLE HISTORY: Central line placement. COMPARISON: Chest 08/03/2016. FINDINGS: Poststernotomy changes and cardiomegaly are again noted. There are low lung volumes. Mild interstitial pulmonary edema has slightly progressed. Right jugular Port-A-Cath terminates in the right atrium. This remains unchanged. Left jugular central venous catheter terminates in the expected location of the distal SVC. No pneumothorax. Bibasilar densities favor atelectasis. There may be a trace left pleural effusion. IMPRESSION: 1. Left jugular central venous catheter terminates in the distal SVC. No pneumothorax. 2. Slight progression of the mild interstitial pulmonary edema. Electronically signed by: Michael Diaz M.D. 08/04/2016 1:50 PM Dictated Date/Time: 08/04/2016 1:49 PM
[2016-08-04 14:47] LABS: FIBRINOGEN* 476 mg/dl (184-400); INR 2.1 (0.9-1.1); PARTIAL THROMBOPLASTIN RATIO 1.8; PROTHROMBIN TIME (PATIENT) 22.9 SECONDS (9.0-12.0)
[2016-08-04] MEDS: MoRPHine SULFATE 2 MG/ML CARP IV PRN ×2 (14:58→19:25)
--- NOTE | 2016-08-04 15:25 | Progress Note ---
Subjective Date of Service: Aug 04, 2016. 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 Patient is lethargic but opened eyes, report to me his name and birthday and 's name Not able to obtain detailed review of system Report has no pain Problem List Medical Problems: (1) Acute kidney injury Status: Acute (2) History of malignant neoplasm of esophagus Status: Acute (3) Hypomagnesemia Status: Acute (4) Hypomagnesemia Status: Acute (5) Lactic acidosis Status: Acute (6) Nausea & vomiting Status: Acute (7) Neutropenia Status: Acute (8) Pneumonia Status: Acute (9) Thrombocytopenia Status: Acute (10) Vomiting Status: Acute Review of Systems Constitutional: + fatigue, + weakness, No chills, No fever, No problem reported , No see HPI, No sweats, No weight loss Eyes: No diplopia, No discharge, No eye pain, No problem reported, No redness, No see HPI, No worsening of vision ENT: No dental problems, No hearing loss, No nasal symptoms, No problem reported, No see HPI, No sore throat, No tinnitus, No trouble swallowing, No unusual epistaxis Respiratory: + cough, + shortness of breath, No dyspnea at rest, No dyspnea on exertion, No hemoptysis, No problem reported, No see HPI, No sputum, No wheezing Musculoskeletal: No calf pain, No joint pain, No muscle pain, No problem reported, No see HPI, No swelling Skin: No bleeding, No color change, No itch, No new/changing skin lesions, No problem reported, No rash, No see HPI Objective Vital Signs Date Time Temp Pulse Resp B/P Pulse Ox O2 Delivery O2 Flow Rate FiO2 08/04/16 14:20 92 25 129/75 97 Nasal Cannula 4.0 08/04/16 14:15 36.6 91 33 123/53 97 Nasal Cannula 4.0 08/04/16 13:50 36.5 93 28 106/51 96 Nasal Cannula 4.0 08/04/16 13:45 91 29 120/51 97 Nasal Cannula 4.0 08/04/16 13:40 93 38 126/62 97 08/04/16 13:30 91 32 118/59 96 08/04/16 13:22 36.7 91 18 112/49 96 08/04/16 13:15 91 28 115/49 96 08/04/16 13:10 92 24 110/61 96 08/04/16 13:00 36.5 93 28 106/51 96 Nasal Cannula 4.0 08/04/16 12:40 92 31 92/40 89 08/04/16 12:31 94 32 99/37 94 08/04/16 12:20 94 35 111/56 08/04/16 12:10 92 33 96/50 96 08/04/16 12:02 36.6 93 31 72/40 89 08/04/16 11:45 96 33 95/55 08/04/16 11:30 95 33 89/49 88 08/04/16 11:23 36.6 97 34 101/57 73 Nasal Cannula 4.0 08/04/16 08:00 93 Room Air 08/04/16 07:01 36.4 105 20 90/58 92 Room Air 88/44 08/04/16 05:00 36.6 105 18 91/56 95 Room Air 08/04/16 04:00 Room Air 08/04/16 01:51 36.8 109 20 104/70 95 Room Air 08/04/16 00:04 36.6 112 22 123/67 95 Room Air 08/04/16 00:01 Room Air 08/03/16 22:13 36.5 116 18 110/60 97 Room Air 08/03/16 20:00 Room Air 08/03/16 19:30 36.8 142 26 117/75 96 Room Air 08/03/16 17:58 36.5 133 22 138/73 96 Room Air 08/03/16 16:25 117 94 08/03/16 16:00 128/68 08/03/16 15:55 114 29 95 08/03/16 15:25 113 28 92 Physical Exam General Appearance: WD/WN, no apparent distress, + obese, + pertinent finding ( looks pale) Eyes: normal inspection, PERRL, EOMI, sclerae normal ENT: normal ENT inspection, hearing grossly normal, pharynx normal Neck: supple, no adenopathy, thyroid normal, no JVD, no carotid bruits, trachea midline Respiratory/Chest: chest non-tender, normal breath sounds, no respiratory distress, no accessory muscle use, + decreased breath sounds Cardiovascular: regular rate, rhythm, no edema, no gallop, no JVD, no murmur Abdomen: normal bowel sounds, non tender, soft, no organomegaly, no pulsatile mass Extremities: normal range of motion, non-tender, normal inspection, no pedal edema, no calf tenderness, normal capillary refill, pelvis stable Neurologic/Psychiatric: log chain feeder II-XII nml as tested, no motor/sensory deficits, alert, normal mood/affect, oriented x 3 Skin: normal color, warm/dry, no rash Lymphatic: no adenopathy Laboratory Results Last 24 Hours Test 08/03/16 16:13 08/03/16 16:20 08/03/16 20:22 08/03/16 20:25 Lactic Acid Level 7.6 mmol/L 10.0 mmol/L Influenza Type A (RT-PCR) Neg for Influ A Influenza Type B (RT-PCR) Neg for Influ B White Blood Count 0.04 K/uL Red Blood Count 4.09 M/uL Hemoglobin 10.7 g/dL Hematocrit 32.2 % Mean Corpuscular Volume 78.7 fL Mean Corpuscular Hemoglobin 26.2 pg Mean Corpuscular Hemoglobin Concent 33.2 g/dl Platelet Count 23 K/uL RDW Standard Deviation 44.3 fL RDW Coefficient of Variation 15.4 % Neutrophils % (Manual) 0.0 % Band Neutrophils % (Manual) 0.0 % Lymphocytes % (Manual) 98.0 % Variant Lymphocytes % (manual) 0.0 % Eosinophils % (Manual) 2.0 % Neutrophils # (Manual) 0.00 K/uL Total Absolute Neutrophils 0.00 K/uL Lymphocytes # (Manual) 0.04 K/uL Total Absolute Lymphocytes 0.04 K/uL Eosinophils # (Manual) 0.00 K/uL Percent Large Granular Lymphocytes 0.0 % Giant Platelets 2+ Sodium Level 140 mmol/L Potassium Level 4.7 mmol/L Chloride Level 109 mmol/L Carbon Dioxide Level 14 mmol/L Anion Gap 17.0 mmol/L Blood Urea Nitrogen 42 mg/dl Creatinine 3.00 mg/dl Est Creatinine Clear Calc Drug Dose 24.5 ml/min Estimated GFR () 23.0 Estimated GFR (Non- 19.8 BUN/Creatinine Ratio 13.9 Random Glucose 90 mg/dl Calcium Level 6.6 mg/dl Magnesium Level 1.4 mg/dl Total Creatine Kinase 62 U/L Creatine Kinase MB 1.6 ng/ml Creatine Kinase MB Ratio 2.6 Troponin I 0.263 ng/ml Test 08/04/16 01:55 08/04/16 08:35 08/04/16 08:40 08/04/16 10:30 Creatinine 3.10 mg/dl 2.80 mg/dl Est Creatinine Clear Calc Drug Dose 23.7 ml/min 26.3 ml/min Estimated GFR () 22.1 25.0 Estimated GFR (Non- 19.1 21.6 Total Creatine Kinase 79 U/L Creatine Kinase MB 1.9 ng/ml Creatine Kinase MB Ratio 2.4 Troponin I 0.234 ng/ml Random Vancomycin Level 12.9 mcg/ml White Blood Count 0.11 K/uL Red Blood Count 3.96 M/uL Hemoglobin 10.5 g/dL Hematocrit 32.2 % Mean Corpuscular Volume 81.3 fL Mean Corpuscular Hemoglobin 26.5 pg Mean Corpuscular Hemoglobin Concent 32.6 g/dl Platelet Count 16 K/uL RDW Standard Deviation 47.7 fL RDW Coefficient of Variation 16.0 % Neutrophils % (Manual) 0.0 % Lymphocytes % (Manual) 97.0 % Eosinophils % (Manual) 2.0 % Basophils % (Manual) 1.0 % Neutrophils # (Manual) 0.00 K/uL Total Absolute Neutrophils 0.00 K/uL Lymphocytes # (Manual) 0.11 K/uL Total Absolute Lymphocytes 0.11 K/uL Eosinophils # (Manual) 0.00 K/uL Basophils # (Manual) 0.00 K/uL Giant Platelets 2+ Echinocytes 1+ Sodium Level 138 mmol/L Potassium Level 5.0 mmol/L Chloride Level 105 mmol/L Carbon Dioxide Level 14 mmol/L Anion Gap 19.0 mmol/L Blood Urea Nitrogen 45 mg/dl BUN/Creatinine Ratio 16.1 Random Glucose 164 mg/dl Calcium Level 6.4 mg/dl Magnesium Level 2.2 mg/dl Total Bilirubin 2.2 mg/dl Direct Bilirubin 1.2 mg/dl Aspartate Amino Transf (AST/SGOT) 50 U/L Alanine Aminotransferase (ALT/SGPT) 44 U/L Alkaline Phosphatase 60 U/L Total Protein 5.0 gm/dl Albumin 2.1 gm/dl Urine Color DK YELLOW Urine Appearance CLOUDY Urine pH 5.0 Urine Specific [place] 1.022 Urine Protein 1+ Urine Glucose (UA) NEG Urine Ketones TRACE Urine Occult Blood TRACE Urine Nitrite NEG Urine Bilirubin NEG Urine Urobilinogen NEG Urine Leukocyte Esterase NEG Urine WBC (Auto) 1-5 /hpf Urine RBC (Auto) 0-4 /hpf Urine Hyaline Casts (Auto) 1-5 /lpf Urine Epithelial Cells (Auto) 10-20 /lpf Urine Bacteria (Auto) NEG Urine Renal Epithelial Cells /lpf Urine Crystals AMORPHOUS SEDIMENT Urine Pathogenic Casts /lpf Urine Yeast (Auto) Test 08/04/16 10:38 08/04/16 11:02 08/04/16 13:30 08/04/16 13:53 Creatine Kinase MB 3.1 ng/ml Creatine Kinase MB Ratio Troponin I 0.248 ng/ml Lactic Acid Level 8.9 mmol/L Prothrombin Time 22.9 SECONDS Prothromb Time International Ratio 2.1 Activated Partial Thromboplast Time 47.2 SECONDS Partial Thromboplastin Ratio 1.8 Fibrinogen 476 mg/dl Fibrin Degradation Products 10-40 mcg/ml Assessment and Plan 70 y/o male with PMHx of Metastatic Esophageal CA with Mets to Lung, Prostate CA S/P Prostatectomy, CAD S/P CABG x 3, HTN, CKD Stage II, and Cerebral Venous Thrombosis on Lovenox was admitted on 08/03/2016 complaining of persistent weakness Initially was admitted to telemetry for sepsis likely a pulmonary source, this morning transfer down to ICU because of worsening sepsis which is supported by low blood pressure and more confused Sepsis 2/2 Pneumonia with Non-specific Colitis and Neutropenic Fever: Immunocompromised and noted to recent chemotherapy NEUTROPENIC PRECAUTIONS - Awaiting further R/O with UA, C. Diff, and BCx - Chest CT - further evaluation of lung [place] for pneumonia vs CA - Broad-spectrum antibiotics include Zosyn and vancomycin per pharmacy dosing Elevated Troponin: Likely because of sepsis which is Demand Ischemia Less likely has SALINA or NSTEMI Discussed with cardiology , appreciate recommendations SALINA on CKD Stage II: Baseline 1.5-1.6 Slowly improving, Continue hydration as above - trend BMP Hypomagnesemia: Follow-up Metastatic Esophageal CA with Lung Mets under Chemotherapy with Pancytopenia: - Zofran 4-8 mg IV PRN - Consult Heme/Onc - Dr. Cruz -- Neupogen 300 mcg daily Hypothyroidism: - Synthroid 100 mcg daily Neutropenia and thrombocytopenia with mild anemia, likely from recent chemotherapy Which is getting worse with nurse in the area of sepsis, such as worsening neutropenia and thrombocytopenia Neupogen was given, hematology on the case Cerebral Venous Thrombosis: 3 Years Ago - Patient has been continued on prophylactic Lovenox while undergoing cancer treatment - Due to significant thrombocytopenia - will hold Lovenox until further evaluation DVT Prophylaxis: Thrombocytopenia; YEE/SCDs Code Status: Okay CPR but no machine support Discussed with patient and family about medical conditions and care plan, Patient's prognosis is guarded Continued [facility] stay due to: multiple IV medications needed Discharge planning: home
[2016-08-04 18:31] LABS: ISTAT ARTERIAL BLOOD GAS HCO3 12 meq/L (19-24); ISTAT ARTERIAL BLOOD GAS PCO2 30 mmHg (35-46); ISTAT ARTERIAL BLOOD GAS PO2 97 mmHg (80-95); ISTAT ARTERIAL BLOOD GAS pH 7.19 (7.35-7.45); ISTAT CARBON DIOXIDE 12 mEq/l (24-31); ISTAT DELIVERY SYSTEM Cannula; ISTAT SITE Art Line
[2016-08-04 21:47] LABS: INR 1.9 (0.9-1.1); PARTIAL THROMBOPLASTIN RATIO 1.7; PROTHROMBIN TIME (PATIENT) 20.6 SECONDS (9.0-12.0)
[2016-08-04 21:53] LABS: MEAN CELL VOLUME 80.1 fL (80-100); MEAN CORPUSCULAR HEMOGLOBIN 25.8 pg (25-34); MEAN CORPUSCULAR HGB CONC 32.3 g/dl (32-36); PLATELET COUNT 15 K/uL (130-400); RED BLOOD COUNT 3.87 M/uL (4.7-6.1); WHITE BLOOD COUNT 0.15 K/uL (4.8-10.8)
[2016-08-04 22:03] LABS: ECHINOCYTES 3+; GIANT PLATELETS 1+; LARGE PLATELETS 2+
[2016-08-04 22:06] LABS: COMPLETE YES; EOSINOPHIL % 4.9 %; LYMPH ABS # 0.11 K/uL (1.2-3.4); LYMPHOCYTE % 70.7 %
[2016-08-04] MEDS: PIPERACILL/TAZOBAC IV 4.5 GM in DEXTROSE 5% 100ML IV SCH (22:10)
[2016-08-05] VITALS (27 sets, daily range): BP systolic 37–122; BP diastolic 24–69; PULSE 74–107; TEMP 36.8–37.4; O2SAT 75–98
[2016-08-05 00:53] LABS: CREATININE 3.1 mg/dl (0.60-1.40)
[2016-08-05] MEDS ORDERED: VANCOMYCIN INJ 1,350 MG in SODIUM CHLORIDE 0.9% 250ML 250 ML IV SCH (02:00)
[2016-08-05] MEDS: NORMOSOL R 1,000 ML IV SCH (03:20)
[2016-08-05] MEDS: LEVOTHYROXINE 100 MCG TAB PO SCH (06:00)
[2016-08-05] MEDS: PIPERACILL/TAZOBAC IV 4.5 GM in DEXTROSE 5% 100ML IV SCH (06:22)
[2016-08-05 06:27] LABS: HEMATOCRIT 31.5 % (42-52); MEAN CORPUSCULAR HGB CONC 32.1 g/dl (32-36); PLATELET COUNT 16 K/uL (130-400); RED BLOOD COUNT 3.89 M/uL (4.7-6.1)
[2016-08-05 06:58] LABS: BUN/CREATININE RATIO 16.8 (10-20); CALCIUM 6.3 mg/dl (8.5-10.1); CREATININE 3.5 mg/dl (0.60-1.40); MAGNESIUM 2.5 mg/dl (1.8-2.4); POTASSIUM 6.7 mmol/L (3.5-5.1)
[2016-08-05 06:59] LABS: INR 1.7 (0.9-1.1); PARTIAL THROMBOPLASTIN RATIO 1.7; PROTHROMBIN TIME (PATIENT) 18.7 SECONDS (9.0-12.0)
[2016-08-05] MEDS ORDERED: NON-FORMULARY MEDICATION SCH (07:30)
[2016-08-05] MEDS ORDERED: INSULIN PROTOCOL GOAL RANGE ONE (07:30)
[2016-08-05] MEDS ORDERED: SODIUM POLYST. SULF SUSP 15G/60ML PO STA (07:32)
[2016-08-05] MEDS ORDERED: DEXTROSE 50% 50 ML SYR IV STA (07:35)
[2016-08-05] MEDS ORDERED: DEXTROSE 50% 50 ML SYR ONE (07:42)
--- NOTE | 2016-08-05 07:57 | Critical Care Progress Note ---
Critical Care Progress Note Date of Service Aug 05, 2016. ICU Day ICU Day Number: [address] Dawson Subjective Unresponsive Objective Neuro: GCS of 3 Cardiovascular: S1-S2 tachycardic Lungs: Scattered rhonchi bilaterally tachypnea Abdomen soft, hypoactive bowel sounds Extremities: 1+ peripheral pulses, delayed capillary refill Assessment & Plan Problem list: Gram-negative septic multisystem organ failure secondary to Klebsiella oxytocin : pansensitive Pancytopenia secondary to chemotherapy Respiratory insufficiency Lactic acidosis Acute kidney injury Hyperkalemia Metabolic acidosis I had an extensive discussion with the patient's , we started treatment for severe hyperkalemia in the setting of acute renal failure. With an extensive conversation the patient's stated he would not want to be on life support, he would not want dialysis and in the setting of multisystem organ failure we changed his CODE STATUS to a full DO NOT RESUSCITATE in event of cardiac arrest. She multiple multiple family members who wanted to come to the bedside to be present and we would readdress goals of care at that time. Approximately one hour later with family assembled the decision was made to transition from active life prolonging treatment to comfort measures, all vasoactive medications were stopped and the patient at 11:10 AM I have personally spent 45 minutes of critical care time in the direct management of this patient. This is a life/limb threatening event. This includes time spent evaluating patient, direct bedside care, chart review, placing orders, interpretation of diagnostic studies, discussion with consultants, patient, and family members, as well as other required patient management activities. This time is exclusive of all separately billable procedures, and teaching time and separate from and in addition to any other critical care service time. Consults & Procedures Consultants: Dr. Cruz Procedures: Internal jugular central venous catheter placed 08/04/2016 Radial arterial line placed 08/04/2016 Data Medications: Current Inpatient Medications Medications (Trade) Dose Ordered Sig/Mckinley Route Start Time Stop Time Status Last Admin Dose Admin Acetaminophen (Tylenol Tab) 650 mg Q4H PRN PO 08/03/16 15:45 09/02/16 15:44 Al Hydrox/Mg Hydrox/Simethicone (Maalox Max Susp) 15 ml Q4H PRN PO 08/03/16 15:45 09/02/16 15:44 Magnesium Hydroxide (Milk Of Magnesia Susp) 30 ml Q12H PRN PO 08/03/16 15:45 09/02/16 15:44 Ondansetron HCl (Zofran Inj) 4 mg Q6H PRN IV 08/03/16 15:45 09/02/16 15:44 08/03/16 19:15 4 MG Polyethylene (Miralax Powder Packet) 17 gm DAILY PRN PO 08/03/16 15:45 09/02/16 15:44 Fludrocortisone Acetate (Florinef Tab) 0.1 mg DAILY PO 08/04/16 09:00 09/03/16 08:59 Levothyroxine Sodium (Synthroid Tab) 100 mcg DAILYBB PO 08/04/16 06:00 09/03/16 06:59 08/04/16 04:04 100 MCG Zolpidem Tartrate 5 mg 5 mg HS PRN PO 08/03/16 15:45 09/02/16 15:44 Ondansetron HCl 8 mg/Dextrose 54 ml @ 200 mls/hr Q6H PRN IV 08/03/16 15:45 09/02/16 15:44 Acetaminophen/ Empty Bag (Ofirmev Iv/ Empty Iv Bag 100ml) 65 ml @ 260 mls/hr Q6H PRN IV 08/03/16 19:00 09/02/16 18:59 08/04/16 09:15 260 MLS/HR Vancomycin HCl (Consult) 1 ea UD PRN N/A 08/03/16 19:15 09/02/16 19:14 Piperacillin Sod/ Tazobactam Sod 1 ea 1 ea UD PRN N/A 08/03/16 19:15 09/02/16 19:14 Future hold Pantoprazole Sodium/Syringe (Protonix Inj/ Syringe) 10 ml @ 5 mls/min DAILY@11 IV 08/04/16 11:00 09/03/16 10:59 08/04/16 10:34 5 MLS/MIN Lorazepam 0.5 mg 0.5 mg Q4H PRN IV 08/03/16 19:45 09/02/16 19:44 08/04/16 05:58 0.5 MG Lorazepam/Syringe (Ativan Inj/ Syringe) 1 ml @ 1 mls/min Q4H PRN IV 08/03/16 19:45 09/02/16 19:44 Filgrastim 300 mcg 300 mcg Q24H SQ 08/04/16 20:00 08/08/16 19:59 08/04/16 20:29 300 MCG Levofloxacin/Prmx (Levaquin / D5W/ Premixed D5W) 150 ml @ 100 mls/hr Q48H IV 08/03/16 22:00 08/10/16 21:59 08/03/16 22:49 100 MLS/HR Levofloxacin (Consult) 1 ea UD PRN N/A 08/03/16 21:45 09/02/16 21:44 Heparin Sodium (Porcine) 5 ml 5 ml PRN PRN IV 08/04/16 01:45 09/03/16 01:44 Norepinephrine Bitartrate 8 mg/ Dextrose 508 ml @ 0 mls/hr Q0M PRN IV 08/04/16 12:45 09/03/16 12:44 Parenteral Electrolyte Solution (Normosol R) 1,000 ml @ 150 mls/hr Q6H40M IV 08/04/16 13:15 09/03/16 13:14 08/05/16 03:20 150 MLS/HR Morphine Sulfate 2 mg 2 mg Q4H PRN IV 08/04/16 13:45 08/18/16 13:44 08/04/16 19:25 2 MG Piperacillin Sod/ Tazobactam Sod/ Dextrose (Zosyn Iv/D5 100ml) 120 ml @ 30 mls/hr Q8H IV 08/04/16 14:00 08/17/16 13:59 Future hold 08/05/16 06:22 30 MLS/HR Insulin Aspart (novoLOG ASPART) [facility] 08/05/16 08:00 09/04/16 07:59 UNV Miscellaneous (Insulin Protocol Goal Range (Other)) 1 ea ONE ONCE N/A 08/05/16 07:30 08/05/16 07:31 UNV Non-Formulary Medication 1 ea UD N/A 08/05/16 07:30 09/04/16 07:29 UNV Sodium Polystyrene Sulfonate (Kayexalate Susp) 15 gm NOW STAT PO 08/05/16 07:32 08/05/16 07:33 UNV I & O: 24-Hour Column 08/05/16 08:00 Intake Total 5261 ml Output Total 750 ml Balance 4511 ml Vital Signs: Date Time Temp Pulse Resp B/P Pulse Ox O2 Delivery O2 Flow Rate FiO2 08/05/16 06:15 93 39 107/43 97 08/05/16 06:00 91 38 102/47 98 08/05/16 05:45 98 37 91/41 98 08/05/16 05:39 92 37 64/35 96 08/05/16 05:36 91 39 62/34 97 08/05/16 05:31 91 37 54/31 94 08/05/16 05:30 91 37 55/31 94 08/05/16 05:00 90 33 115/49 92 08/05/16 04:30 89 39 102/43 96 08/05/16 04:27 95 Nasal Cannula 5.0 08/05/16 04:00 36.8 90 36 113/59 96 Nasal Cannula 5.0 08/05/16 03:30 92 42 112/53 96 08/05/16 03:00 91 38 103/61 96 08/05/16 02:30 93 7 122/64 93 08/05/16 02:00 92 27 101/69 97 08/05/16 01:30 91 29 101/58 96 08/05/16 01:03 96 Nasal Cannula 4.0 08/05/16 01:00 91 20 99/55 96 08/05/16 01:00 91 20 99/55 96 Nasal Cannula 4.0 08/05/16 00:30 94 16 104/62 96 08/05/16 00:30 94 16 104/62 96 Nasal Cannula 4.0 08/05/16 00:00 92 36 119/54 96 08/05/16 00:00 36.8 92 36 119/54 96 Nasal Cannula 4.0 08/04/16 23:30 92 35 108/46 96 Nasal Cannula 4.0 08/04/16 23:00 91 33 124/53 96 Nasal Cannula 4.0 08/04/16 22:00 91 33 116/54 96 Nasal Cannula 4.0 08/04/16 21:30 92 47 89/58 96 Nasal Cannula 4.0 08/04/16 21:00 92 23 102/53 96 Nasal Cannula 4.0 08/04/16 20:33 96 Nasal Cannula 4.0 08/04/16 20:30 93 33 119/50 96 Nasal Cannula 4.0 08/04/16 20:00 36.8 92 33 98/51 96 Nasal Cannula 4.0 08/04/16 19:30 91 31 95/56 95 Nasal Cannula 4.0 08/04/16 19:00 93 18 109/60 96 Nasal Cannula 4.0 08/04/16 18:00 93 49 136/64 97 Nasal Cannula 4.0 08/04/16 17:30 91 37 129/63 96 08/04/16 17:00 91 33 126/70 97 08/04/16 16:30 91 31 125/66 97 08/04/16 16:06 96 Nasal Cannula 4.0 08/04/16 16:00 91 30 131/70 97 08/04/16 15:29 36.6 90 27 122/72 97 Nasal Cannula 4.0 08/04/16 15:15 91 27 119/53 97 08/04/16 14:20 92 25 129/75 97 Nasal Cannula 4.0 08/04/16 14:15 36.6 91 33 123/53 97 Nasal Cannula 4.0 08/04/16 13:50 36.5 93 28 106/51 96 Nasal Cannula 4.0 08/04/16 13:45 91 29 120/51 97 Nasal Cannula 4.0 08/04/16 13:40 93 38 126/62 97 08/04/16 13:30 91 32 118/59 96 08/04/16 13:22 36.7 91 18 112/49 96 08/04/16 13:15 91 28 115/49 96 08/04/16 13:10 92 24 110/61 96 08/04/16 13:00 36.5 93 28 106/51 96 Nasal Cannula 4.0 08/04/16 12:40 92 31 92/40 89 08/04/16 12:31 94 32 99/37 94 08/04/16 12:20 94 35 111/56 08/04/16 12:10 92 33 96/50 96 08/04/16 12:02 36.6 93 31 72/40 89 08/04/16 11:45 96 33 95/55 08/04/16 11:30 95 33 89/49 88 08/04/16 11:23 36.6 97 34 101/57 73 Nasal Cannula 4.0 08/04/16 08:00 93 Room Air Laboratory Results: Last 24 Hours Test 08/04/16 08:35 08/04/16 08:40 08/04/16 10:30 08/04/16 10:38 White Blood Count 0.11 K/uL Red Blood Count 3.96 M/uL Hemoglobin 10.5 g/dL Hematocrit 32.2 % Mean Corpuscular Volume 81.3 fL Mean Corpuscular Hemoglobin 26.5 pg Mean Corpuscular Hemoglobin Concent 32.6 g/dl Platelet Count 16 K/uL RDW Standard Deviation 47.7 fL RDW Coefficient of Variation 16.0 % Neutrophils % (Manual) 0.0 % Lymphocytes % (Manual) 97.0 % Eosinophils % (Manual) 2.0 % Basophils % (Manual) 1.0 % Neutrophils # (Manual) 0.00 K/uL Total Absolute Neutrophils 0.00 K/uL Lymphocytes # (Manual) 0.11 K/uL Total Absolute Lymphocytes 0.11 K/uL Eosinophils # (Manual) 0.00 K/uL Basophils # (Manual) 0.00 K/uL Giant Platelets 2+ Echinocytes 1+ Sodium Level 138 mmol/L Potassium Level 5.0 mmol/L Chloride Level 105 mmol/L Carbon Dioxide Level 14 mmol/L Anion Gap 19.0 mmol/L Blood Urea Nitrogen 45 mg/dl Creatinine 2.80 mg/dl Est Creatinine Clear Calc Drug Dose 26.3 ml/min Estimated GFR () 25.0 Estimated GFR (Non- 21.6 BUN/Creatinine Ratio 16.1 Random Glucose 164 mg/dl Calcium Level 6.4 mg/dl Magnesium Level 2.2 mg/dl Total Bilirubin 2.2 mg/dl Direct Bilirubin 1.2 mg/dl Aspartate Amino Transf (AST/SGOT) 50 U/L Alanine Aminotransferase (ALT/SGPT) 44 U/L Alkaline Phosphatase 60 U/L Total Protein 5.0 gm/dl Albumin 2.1 gm/dl Urine Color DK YELLOW Urine Appearance CLOUDY Urine pH 5.0 Urine Specific [place] 1.022 Urine Protein 1+ Urine Glucose (UA) NEG Urine Ketones TRACE Urine Occult Blood TRACE Urine Nitrite NEG Urine Bilirubin NEG Urine Urobilinogen NEG Urine Leukocyte Esterase NEG Urine WBC (Auto) 1-5 /hpf Urine RBC (Auto) 0-4 /hpf Urine Hyaline Casts (Auto) 1-5 /lpf Urine Epithelial Cells (Auto) 10-20 /lpf Urine Bacteria (Auto) NEG Urine Renal Epithelial Cells /lpf Urine Crystals AMORPHOUS SEDIMENT Urine Pathogenic Casts /lpf Urine Yeast (Auto) Creatine Kinase MB Ratio Creatine Kinase MB 3.1 ng/ml Troponin I 0.248 ng/ml Test 08/04/16 11:02 08/04/16 13:30 08/04/16 13:53 08/04/16 18:18 Lactic Acid Level 8.9 mmol/L Random Cortisol > 150.00 mcg/dl Prothrombin Time 22.9 SECONDS Prothromb Time International Ratio 2.1 Activated Partial Thromboplast Time 47.2 SECONDS Partial Thromboplastin Ratio 1.8 Fibrinogen 476 mg/dl Fibrin Degradation Products 10-40 mcg/ml Blood Gas Sample Site Art Line Bedside Blood Gas pH (LAB) 7.19 Bedside Blood Gas pCO2 (LAB) 30 mmHg Bedside Blood Gas pO2 (LAB) 97 mmHg Bedside Blood Gas HCO3 (LAB) 12 meq/L Bedside Blood Gas Total CO2 12 mEq/l Bedside Blood Gas Base Excess (LAB) -17.0 meq/L Bedside Blood Gas O2 Saturation 96.0 % Paul Test NA Oxygen Delivery Device Cannula Test 08/04/16 21:10 08/05/16 00:25 08/05/16 05:55 08/05/16 07:20 White Blood Count 0.15 K/uL 0.20 K/uL Red Blood Count 3.87 M/uL 3.89 M/uL Hemoglobin 10.0 g/dL 10.1 g/dL Hematocrit 31.0 % 31.5 % Mean Corpuscular Volume 80.1 fL 81.0 fL Mean Corpuscular Hemoglobin 25.8 pg 26.0 pg Mean Corpuscular Hemoglobin Concent 32.3 g/dl 32.1 g/dl Platelet Count 15 K/uL 16 K/uL RDW Standard Deviation 47.4 fL 49.1 fL RDW Coefficient of Variation 16.4 % 16.6 % Neutrophils % (Manual) 0.0 % Lymphocytes % (Manual) 70.7 % Monocytes % (Manual) 24.4 % Eosinophils % (Manual) 4.9 % Neutrophils # (Manual) 0.00 K/uL Total Absolute Neutrophils 0.00 K/uL Lymphocytes # (Manual) 0.11 K/uL Total Absolute Lymphocytes 0.11 K/uL Monocytes # (Manual) 0.04 K/uL Eosinophils # (Manual) 0.01 K/uL Large Platelets 2+ Giant Platelets 1+ Echinocytes 3+ Prothrombin Time 20.6 SECONDS 18.7 SECONDS Prothromb Time International Ratio 1.9 1.7 Activated Partial Thromboplast Time 44.7 SECONDS 44.0 SECONDS Partial Thromboplastin Ratio 1.7 1.7 Fibrinogen 496 mg/dl 629 mg/dl Fibrin Degradation Products 10-40 mcg/ml 10-40 mcg/ml Lactic Acid Level 7.6 mmol/L 8.3 mmol/L Creatinine 3.10 mg/dl 3.50 mg/dl Est Creatinine Clear Calc Drug Dose 23.7 ml/min 21.3 ml/min Estimated GFR () 22.1 19.1 Estimated GFR (Non- 19.1 16.5 Random Vancomycin Level 19.6 mcg/ml Sodium Level 140 mmol/L Potassium Level 6.7 mmol/L Chloride Level 108 mmol/L Carbon Dioxide Level 12 mmol/L Anion Gap 20.0 mmol/L Blood Urea Nitrogen 59 mg/dl BUN/Creatinine Ratio 16.8 Random Glucose 53 mg/dl Calcium Level 6.3 mg/dl Magnesium Level 2.5 mg/dl Total Bilirubin 2.1 mg/dl Direct Bilirubin 1.3 mg/dl Aspartate Amino Transf (AST/SGOT) 46 U/L Alanine Aminotransferase (ALT/SGPT) 42 U/L Alkaline Phosphatase 34 U/L Total Protein 5.1 gm/dl Albumin 1.9 gm/dl Test 08/05/16 07:30
[2016-08-05 08:00] LABS: COMPLETE YES; GIANT PLATELETS 1+; LARGE PLATELETS 2+; LYMPH ABS # 0.19 K/uL (1.2-3.4)
[2016-08-05] MEDS ORDERED: DEXTROSE IV SCH ×4 (08:00)
[2016-08-05] MEDS ORDERED: [UNRECOGNIZED DRUG - OTHER] IV SCH ×4 (08:00)
[2016-08-05] MEDS ORDERED: INSULIN REGULAR IV SCH ×4 (08:00)
[2016-08-05] MEDS ORDERED: INSULIN ASPART 100 UNITS/ML 3 ML PEN SC SCH (08:00)
[2016-08-05 08:04] LABS: BUN/CREATININE RATIO 16.6 (10-20); CALCIUM 6.2 mg/dl (8.5-10.1); CREATININE 3.5 mg/dl (0.60-1.40); POTASSIUM 6.9 mmol/L (3.5-5.1)
[2016-08-05 08:22] LABS: ISTAT ARTERIAL BLOOD GAS HCO3 11 meq/L (19-24); ISTAT ARTERIAL BLOOD GAS PCO2 37 mmHg (35-46); ISTAT ARTERIAL BLOOD GAS PO2 84 mmHg (80-95); ISTAT ARTERIAL BLOOD GAS pH 7.11 (7.35-7.45); ISTAT CARBON DIOXIDE 13 mEq/l (24-31); ISTAT DELIVERY SYSTEM Cannula; ISTAT SITE Art Line
[2016-08-05] MEDS: FLUDROCORTISONE ACETATE 0.1 MG TAB PO SCH (09:00)
--- NOTE | 2016-08-05 09:26 | Hematology/Oncology Prog Note ---
Hematology/Onc Progress Note Date of Service Aug 05, 2016. Diagnoses Gram-negative sepsis Metastatic esophagogastric carcinoma Cytopenia secondary to chemotherapy Medications Medications Administered Medications (Trade) Dose Ordered Sig/Mckinley Route Start Time Stop Time Status Last Admin Dose Admin Sodium Chloride (Nss 1000ml) 2,000 ml @ 999 mls/hr Q2H1M STAT IV 08/03/16 13:38 08/03/16 15:38 DC 08/03/16 14:28 999 MLS/HR Piperacillin Sod/ Tazobactam Sod 4.5 gm 4.5 gm NOW STAT IV 08/03/16 13:39 08/03/16 13:40 DC 08/03/16 14:28 4.5 GM Sodium Chloride 1,000 ml @ 999 mls/hr Q1H1M STAT IV 08/03/16 14:06 08/03/16 15:06 DC 08/03/16 14:06 999 MLS/HR Vancomycin HCl 1900 mg/Sodium Chloride 538 ml @ 200 mls/hr TODAY@1406 IV 08/03/16 14:06 08/03/16 18:00 DC 08/03/16 14:31 200 MLS/HR Magnesium Sulfate 1 gm/Prmx 100 ml @ 100 mls/hr Q1H IV 08/03/16 19:00 08/03/16 21:59 DC 08/03/16 20:39 100 MLS/HR Sodium Chloride (Nss 1000ml) 1,000 ml @ 100 mls/hr Q10H IV 08/03/16 19:15 08/04/16 13:31 DC 08/04/16 10:52 100 MLS/HR Ondansetron HCl 4 mg 4 mg Q6H PRN IV 08/03/16 15:45 09/02/16 15:44 08/03/16 19:15 4 MG Piperacillin Sod/ Tazobactam Sod/ Dextrose (Zosyn Iv/D5 100ml) 115 ml @ 28.75 mls/ hr Q8H IV 08/03/16 20:00 08/04/16 18:00 DC 08/04/16 13:49 28.75 MLS/HR Levothyroxine Sodium 100 mcg 100 mcg DAILYBB PO 08/04/16 06:00 09/03/16 06:59 08/04/16 04:04 100 MCG Pantoprazole Sodium 40 mg/ Syringe 10 ml @ 5 mls/min NOW ONCE IV 08/03/16 19:00 08/03/16 19:14 DC 08/03/16 19:11 5 MLS/MIN Acetaminophen 650 mg/Empty Bag 65 ml @ 260 mls/hr Q6H PRN IV 08/03/16 19:00 09/02/16 18:59 08/04/16 09:15 260 MLS/HR Pantoprazole Sodium/Syringe (Protonix Inj/ Syringe) 10 ml @ 5 mls/min DAILY@11 IV 08/04/16 11:00 09/03/16 10:59 08/04/16 10:34 5 MLS/MIN Lorazepam (Ativan Inj) 0.5 mg Q4H PRN IV 08/03/16 19:45 09/02/16 19:44 08/04/16 05:58 0.5 MG Filgrastim (Neupogen Sq) 300 mcg 2030 ONCE SQ 08/03/16 20:30 08/03/16 20:31 DC 08/03/16 20:40 300 MCG Filgrastim 300 mcg 300 mcg Q24H SQ 08/04/16 20:00 08/08/16 19:59 08/04/16 20:29 300 MCG Levofloxacin 750 mg/Prmx 150 ml @ 100 mls/hr Q48H IV 08/03/16 22:00 08/10/16 21:59 08/03/16 22:49 100 MLS/HR Vancomycin HCl 1600 mg/Sodium Chloride 532 ml @ 200 mls/hr 1030 ONCE IV 08/04/16 10:30 08/04/16 13:09 DC 08/04/16 10:37 200 MLS/HR Hydrocortisone Sodium Succinate/ Syringe (Solu-Cortef IV/ Syringe) 2 ml @ 4 mls/min TODAY@1130 IV 08/04/16 11:30 08/04/16 11:31 DC 08/04/16 11:58 4 MLS/MIN Morphine Sulfate (MoRPHine SULFATE INJ) 2 mg STK-MED ONCE .ROUTE 08/04/16 12:00 08/04/16 12:01 DC 08/04/16 11:58 2 MG Norepinephrine Bitartrate 4 mg 4 mg STK-MED ONCE .ROUTE 08/04/16 12:09 08/04/16 12:10 DC 08/04/16 13:50 4 MG Parenteral Electrolyte Solution (Normosol R) 1,000 ml @ 150 mls/hr Q6H40M IV 08/04/16 13:15 09/03/16 13:14 08/05/16 03:20 150 MLS/HR Morphine Sulfate 2 mg 2 mg Q4H PRN IV 08/04/16 13:45 08/18/16 13:44 08/04/16 19:25 2 MG Piperacillin Sod/ Tazobactam Sod 4.5 gm/Dextrose 120 ml @ 30 mls/hr Q8H IV 08/04/16 14:00 08/17/16 13:59 Future hold 08/05/16 06:22 30 MLS/HR Vancomycin HCl/ Sodium Chloride (Vancomycin Inj/ Nss 250ml) 277 ml @ 125 mls/hr TODAY@0200 IV 08/05/16 02:00 08/05/16 04:13 DC 08/05/16 02:16 125 MLS/HR Dextrose (Dextrose 50% 50ML Syringe) 50 ml STK-MED ONCE .ROUTE 08/05/16 07:42 08/05/16 07:43 DC 08/05/16 07:42 50 ML Subjective Nonresponsive this morning. Tachypneic. Family at bedside. Review of Systems: Not able to obtain Vital Signs Vital Signs Past 12 Hours Date Time Temp Pulse Resp B/P Pulse Ox O2 Delivery O2 Flow Rate FiO2 08/05/16 06:15 93 39 107/43 97 08/05/16 06:00 91 38 102/47 98 08/05/16 05:45 98 37 91/41 98 08/05/16 05:39 92 37 64/35 96 08/05/16 05:36 91 39 62/34 97 08/05/16 05:31 91 37 54/31 94 08/05/16 05:30 91 37 55/31 94 08/05/16 05:00 90 33 115/49 92 08/05/16 04:30 89 39 102/43 96 08/05/16 04:27 95 Nasal Cannula 5.0 08/05/16 04:00 36.8 90 36 113/59 96 Nasal Cannula 5.0 08/05/16 03:30 92 42 112/53 96 08/05/16 03:00 91 38 103/61 96 08/05/16 02:30 93 7 122/64 93 08/05/16 02:00 92 27 101/69 97 08/05/16 01:30 91 29 101/58 96 08/05/16 01:03 96 Nasal Cannula 4.0 08/05/16 01:00 91 20 99/55 96 08/05/16 01:00 91 20 99/55 96 Nasal Cannula 4.0 08/05/16 00:30 94 16 104/62 96 08/05/16 00:30 94 16 104/62 96 Nasal Cannula 4.0 08/05/16 00:00 92 36 119/54 96 08/05/16 00:00 36.8 92 36 119/54 96 Nasal Cannula 4.0 08/04/16 23:30 92 35 108/46 96 Nasal Cannula 4.0 08/04/16 23:00 91 33 124/53 96 Nasal Cannula 4.0 08/04/16 22:00 91 33 116/54 96 Nasal Cannula 4.0 08/04/16 21:30 92 47 89/58 96 Nasal Cannula 4.0 Physical Exam Constitutional: vitals are stable. Eyes: Eyes are ARTURO EOMI without conjuctival erythema or icterus. ENT: External examination was negative for masses. Neck: Negative for masses or palpable thyromegaly Respiratory: Lung sounds were generally clear but with decreased sounds bilaterally Cardiovascular: Heart was tachycardic Gastrointestinal: No palpable hepatic or splenomegaly. The abdomen was soft with normal bowel sounds. Lymphatic system: there was no palpable peripheral lymphadenopathy Musculoskeletal System: The musculoskeletal system seemed concordant with age. Skin: The skin was negative for jaundice. Some mottling peripherally Laboratory Last 24 Hours Test 08/04/16 10:30 08/04/16 10:38 08/04/16 11:02 08/04/16 13:30 Creatine Kinase MB Ratio Creatine Kinase MB 3.1 ng/ml Troponin I 0.248 ng/ml Lactic Acid Level 8.9 mmol/L Random Cortisol > 150.00 mcg/dl Test 08/04/16 13:53 08/04/16 18:18 08/04/16 21:10 08/05/16 00:25 Prothrombin Time 22.9 SECONDS 20.6 SECONDS Prothromb Time International Ratio 2.1 1.9 Activated Partial Thromboplast Time 47.2 SECONDS 44.7 SECONDS Partial Thromboplastin Ratio 1.8 1.7 Fibrinogen 476 mg/dl 496 mg/dl Fibrin Degradation Products 10-40 mcg/ml 10-40 mcg/ml Blood Gas Sample Site Art Line Bedside Blood Gas pH (LAB) 7.19 Bedside Blood Gas pCO2 (LAB) 30 mmHg Bedside Blood Gas pO2 (LAB) 97 mmHg Bedside Blood Gas HCO3 (LAB) 12 meq/L Bedside Blood Gas Total CO2 12 mEq/l Bedside Blood Gas Base Excess (LAB) -17.0 meq/L Bedside Blood Gas O2 Saturation 96.0 % Paul Test NA Oxygen Delivery Device Cannula White Blood Count 0.15 K/uL Red Blood Count 3.87 M/uL Hemoglobin 10.0 g/dL Hematocrit 31.0 % Mean Corpuscular Volume 80.1 fL Mean Corpuscular Hemoglobin 25.8 pg Mean Corpuscular Hemoglobin Concent 32.3 g/dl Platelet Count 15 K/uL RDW Standard Deviation 47.4 fL RDW Coefficient of Variation 16.4 % Neutrophils % (Manual) 0.0 % Lymphocytes % (Manual) 70.7 % Monocytes % (Manual) 24.4 % Eosinophils % (Manual) 4.9 % Neutrophils # (Manual) 0.00 K/uL Total Absolute Neutrophils 0.00 K/uL Lymphocytes # (Manual) 0.11 K/uL Total Absolute Lymphocytes 0.11 K/uL Monocytes # (Manual) 0.04 K/uL Eosinophils # (Manual) 0.01 K/uL Large Platelets 2+ Giant Platelets 1+ Echinocytes 3+ Lactic Acid Level 7.6 mmol/L Creatinine 3.10 mg/dl Est Creatinine Clear Calc Drug Dose 23.7 ml/min Estimated GFR () 22.1 Estimated GFR (Non- 19.1 Random Vancomycin Level 19.6 mcg/ml Test 08/05/16 05:55 08/05/16 07:30 08/05/16 07:32 08/05/16 08:05 White Blood Count 0.20 K/uL Red Blood Count 3.89 M/uL Hemoglobin 10.1 g/dL Hematocrit 31.5 % Mean Corpuscular Volume 81.0 fL Mean Corpuscular Hemoglobin 26.0 pg Mean Corpuscular Hemoglobin Concent 32.1 g/dl Platelet Count 16 K/uL Neutrophils (%) (Auto) 5.0 % Lymphocytes (%) (Auto) 95.0 % Monocytes (%) (Auto) 0.0 % Eosinophils (%) (Auto) 0.0 % Basophils (%) (Auto) 0.0 % Neutrophils # (Auto) 0.01 K/uL Lymphocytes # (Auto) 0.19 K/uL Monocytes # (Auto) 0.00 K/uL Eosinophils # (Auto) 0.00 K/uL Basophils # (Auto) 0.00 K/uL RDW Standard Deviation 49.1 fL RDW Coefficient of Variation 16.6 % Immature Granulocyte % (Auto) 0.0 % Immature Granulocyte # (Auto) 0.00 K/uL Large Platelets 2+ Giant Platelets 1+ Prothrombin Time 18.7 SECONDS Prothromb Time International Ratio 1.7 Activated Partial Thromboplast Time 44.0 SECONDS Partial Thromboplastin Ratio 1.7 Fibrinogen 629 mg/dl Fibrin Degradation Products 10-40 mcg/ml Sodium Level 140 mmol/L 140 mmol/L Potassium Level 6.7 mmol/L 6.9 mmol/L Chloride Level 108 mmol/L 108 mmol/L Carbon Dioxide Level 12 mmol/L 13 mmol/L Anion Gap 20.0 mmol/L 18.0 mmol/L Blood Urea Nitrogen 59 mg/dl 58 mg/dl Creatinine 3.50 mg/dl 3.50 mg/dl Est Creatinine Clear Calc Drug Dose 21.3 ml/min 21.3 ml/min Estimated GFR () 19.1 19.1 Estimated GFR (Non- 16.5 16.5 BUN/Creatinine Ratio 16.8 16.6 Random Glucose 53 mg/dl 55 mg/dl Lactic Acid Level 8.3 mmol/L Calcium Level 6.3 mg/dl 6.2 mg/dl Magnesium Level 2.5 mg/dl Total Bilirubin 2.1 mg/dl Direct Bilirubin 1.3 mg/dl Aspartate Amino Transf (AST/SGOT) 46 U/L Alanine Aminotransferase (ALT/SGPT) 42 U/L Alkaline Phosphatase 34 U/L Total Protein 5.1 gm/dl Albumin 1.9 gm/dl Bedside Glucose 50 mg/dl 153 mg/dl Test 08/05/16 08:09 Blood Gas Sample Site Art Line Bedside Blood Gas pH (LAB) 7.11 Bedside Blood Gas pCO2 (LAB) 37 mmHg Bedside Blood Gas pO2 (LAB) 84 mmHg Bedside Blood Gas HCO3 (LAB) 11 meq/L Bedside Blood Gas Total CO2 13 mEq/l Bedside Blood Gas Base Excess (LAB) -18.0 meq/L Bedside Blood Gas O2 Saturation 91.0 % Paul Test NA Oxygen Delivery Device Cannula Assessment & Plan Gram-negative sepsis. Now in ICU. Situation has worsened with worsening renal function. He is now nonresponsive. Dr. Curry is working on trying to correct her potassium. The family is present and has been counseled. The conversation seems to be having more towards withdrawing of care and comfort measures only. Appreciate Dr. Dawson's help. White cell 2K and platelet 16, 000. Would hold on transfusion unless bleeding occurs or if the family wants to be more aggressive
[2016-08-05] MEDS ORDERED: MoRPHine SULF/NSS 250MG/250ML 250 ML IV PRN (09:30)
--- NOTE | 2016-08-05 13:58 | Death Summary ---
Summary of Admission Date Aug 03, 2016 at 15:47 Date & Time of Aug 05, 2016. 1130 Cause of sepsis Secondary Diagnoses Pneumonia with Non-specific Colitis and Neutropenic Fever: Immunocompromised and noted to recent chemotherapy Elevated Troponin: SALINA on CKD Stage II: Hospital Course 70 y/o male with PMHx of Metastatic Esophageal CA with Mets to Lung, Prostate CA S/P Prostatectomy, CAD S/P CABG x 3, HTN, CKD Stage II, and Cerebral Venous Thrombosis on Lovenox was admitted on 08/03/2016 complaining of persistent weakness Initially was admitted to telemetry for sepsis likely a pulmonary source, this morning transfer down to ICU because of worsening sepsis which is supported by low blood pressure and more confused Sepsis 2/2 Pneumonia with Non-specific Colitis and Neutropenic Fever: Immunocompromised and noted to recent chemotherapy - Chest CT - further evaluation of lung segovia for pneumonia vs CA - Broad-spectrum antibiotics include Zosyn and vancomycin per pharmacy dosing Elevated Troponin: Likely because of sepsis which is Demand Ischemia Less likely has SALINA or NSTEMI SALINA on CKD Stage II: Baseline 1.5-1.6 Hypomagnesemia: Follow-up Metastatic Esophageal CA with Lung Mets under Chemotherapy with Pancytopenia: Hypothyroidism: Neutropenia and thrombocytopenia with mild anemia, likely from recent chemotherapy Cerebral Venous Thrombosis: 3 Years Ago this morning , Family all at bedside made patient comfort measures only. Morphine gtt started at this time at 2mg/hr. Levophed DC'ed pt on 1110 certificate signed Copy To Jovani Olvera M.D.
--- NOTE | 2016-09-04 11:25 | Progress Note ---
Progress Note Date of Service September 04, 2016. Progress Note pt was not seen by ID service as he prior to consultation
== END 2016-08-05 13:04 | disposition expired | DRG 853 ==
LOC: ENRESERVDT → ENRESERVTM → CANRESERV → C.EDB 13:04 → C.2T 15:47 → C.MSICU 17:46
PROVIDERS: ADMIT Hospitalist; ATTEND Hospitalist
PROC: 03HC3DZ Insertion of Intraluminal Device into Left Radial Artery, Percutaneous Approach (ICD-10-PCS; principal; 2016-08-04)
DX: A41.9 Sepsis, unspecified organism (principal); J18.9 Pneumonia, unspecified organism; D61.810 Antineoplastic chemotherapy induced pancytopenia; N17.9 Acute kidney failure, unspecified; C78.00 Secondary malignant neoplasm of unspecified lung; C78.89 Secondary malignant neoplasm of other digestive organs; E87.2 Acidosis; Z85.46 Personal history of malignant neoplasm of prostate; I25.10 Atherosclerotic heart disease of native coronary artery without angina pectoris; I12.9 Hypertensive chronic kidney disease with stage 1 through stage 4 chronic kidney disease, or unspecified chronic kidney disease; N18.3 Chronic kidney disease, stage 3 (moderate); K52.9 Noninfective gastroenteritis and colitis, unspecified; E83.42 Hypomagnesemia; R65.20 Severe sepsis without septic shock; D70.1 Agranulocytosis secondary to cancer chemotherapy; E86.0 Dehydration; J45.909 Unspecified asthma, uncomplicated; D69.6 Thrombocytopenia, unspecified; D64.81 Anemia due to antineoplastic chemotherapy; Z86.718 Personal history of other venous thrombosis and embolism; Z79.01 Long term (current) use of anticoagulants; E03.9 Hypothyroidism, unspecified; E78.5 Hyperlipidemia, unspecified; Z83.3 Family history of diabetes mellitus; Z82.49 Family history of ischemic heart disease and other diseases of the circulatory system; Z95.1 Presence of aortocoronary bypass graft; E87.5 Hyperkalemia; B96.1 Klebsiella pneumoniae [K. pneumoniae] as the cause of diseases classified elsewhere; Z66 Do not resuscitate